=== PATIENT | male | born 1950 | race Caucasian/White ===

== ENCOUNTER 2018-12-18 05:42 | Inpatient (IN) ==
--- NOTE | 2018-11-27 15:13 | PAT Medication Instructions ---
Medication Instructions Date of Service November 27, 2018 Home Medications aspirin [Aspir-81] 81 mg PO QAM fluticasone [Flonase Allergy 1 spray INTRANASAL HS PRN hydrochlorothiazide 25 mg PO QAM losartan 25 mg PO HS ranitidine HCl [Zantac] 150 mg PO QAM tramadol 50 mg PO Q6H PRN ASK your prescriber and surgeon aspirin [Aspir-81] 81 mg PO QAM DO NOT take the morning of surgery hydrochlorothiazide 25 mg PO QAM ranitidine HCl [Zantac] 150 mg PO QAM Take morning of surgery With a small sip of water, OTHERWISE NOTHING TO EAT OR DRINK AFTER MIDNIGHT: tramadol 50 mg PO Q6H PRN (okay to take up to 4 hours prior to surgery if needed) Take evening before surgery fluticasone [Flonase Allergy 1 spray INTRANASAL HS PRN (if needed) losartan 25 mg PO HS tramadol 50 mg PO Q6H PRN (if needed) Other Notes If you have any questions please call us at [phone] or [phone] or [phone] or [phone]
--- NOTE | 2018-11-28 13:01 | Anesthesiology Consultation ---
Date of Service November 28, 2018 Assessment & Plan (1) Encounter for pre-operative examination: - Per patient, surgeon states okay to continue ASA perioperatively Chart Review Chart Review: Acceptable Risk for Surgery and Patient seen in Pre Admission Testing Teaching & Discussion Pre-Anesthesia Teaching/Discussion Notes: Instructed NPO after midnight before surgery,except medications with 15 cc of water. Medication instructions provided according to the PAT guidelines. History Surgery Operation Date: 12/18/18 12:55 Proposed Procedures p C5-C6; C6-C7 Anterior Cervical Discectomy Fusion - Yong Dyer DO Height/Weight Height: 5 ft 10 in Weight: 88 kg Allergies Allergy/AdvReac Type Severity Reaction Status Date / Time Bactrim Allergy Unknown RASH Verified 03/31/15 10:57 Cipro Allergy Unknown HIVES Verified 03/31/15 10:57 ciprofloxacin Allergy Unknown HIVES Verified 11/21/18 13:27 metronidazole Allergy Unknown RASH Verified 11/21/18 13:27 sulfamethoxazole Allergy Unknown RASH Verified 11/21/18 13:27 trimethoprim Allergy Unknown RASH Verified 11/21/18 13:27 Penicillins AdvReac Unknown SYNCOPE Verified 11/28/18 12:58 Medications Home Medications Medication Instructions Recorded Confirmed Last Taken aspirin [Aspir-81] 81 mg PO QAM 11/21/18 11/21/18 Unknown fluticasone [Flonase Allergy 1 spray INTRANASAL HS PRN 11/21/18 11/21/18 Unknown Relief] hydrochlorothiazide 25 mg PO QAM 11/21/18 11/21/18 Unknown losartan 25 mg PO HS 11/21/18 11/21/18 Unknown ranitidine HCl [Zantac] 150 mg PO QAM 11/21/18 11/21/18 Unknown tramadol 50 mg PO Q6H PRN 11/21/18 11/21/18 Unknown Past Medical History Medical History GERD (gastroesophageal reflux disease) CONTROLLED Hypertension Past Surgical History Surgical History Fusion of spine LUMBAR H/O exploratory laparotomy MULTIPLE S/P RUPTURED APPENDIX H/O hand surgery RIGHT H/O hemorrhoidectomy History of appendectomy History of cholecystectomy History of total knee replacement RIGHT Past Anesthesia History No Hx of Anesthesia Complications and No Family Hx of Anesthesia Complications History of PONV No Motion Sickness Screening History of Motion Sickness: No STOP BANG Total 3 Social History Smoking Status: Former smoker Do You Dip or Chew Tobacco: No Smoking End Date: QUIT 40+ YEARS AGO; SHORT TERM USE IN "TEENS" Hx Alcohol Use: No Hx Substance Use: No substance use type: does not use Exercise / Class Metabolic Activity II 4-5 Yardwork/Stairs/Walk up hill Review of Systems Cervicalgia with LUE radiculopathy/neuropathy. Patient denies chest pain, shortness of breath, dyspnea on exertion, cough, wheezing, palpitations. Physical Exam Vital Signs VITALS BP 160/88 P 72 TEMP 98.0 SP02 96%RA RESP 18 PHYSICAL Very mildly decreased cervical extension 2/2 cervicalgia Full TMJ range of motion. TMD 3.5 finger breaths Mallampati Score 2 Dentition: full dentures upper/lower; edentulous Lungs: clear throughout to auscultation Cardiac: regular rate and rhythm, no murmurs noted Spine: normal Carotid arteries: negative bruit Extremities: no edema Testing Electrocardiogram Date: 11/28/18 Findings: + NSR @ (73) Chest X-Ray Date: 11/28/18 Findings: + NAD There is a persistent area of linear scarring/subsegmental atelectasis at the left lung base. Laboratory Results 11/28/18 13:27 11/28/18 13:27 Blood Type O Positive 11/28/18 13:27 Antibody Screen NEGATIVE 11/28/18 13:27 PT 10.7 Seconds (9.0-12.0) 11/28/18 13:27 INR 1.0 (0.9-1.1) 11/28/18 13:27 APTT 27.3 Seconds (21.0-31.0) 11/28/18 13:27 Urine Color Yellow 11/28/18 Unknown Urine Appearance Clear (Clear) 11/28/18 Unknown Urine pH 6.0 (4.5-7.5) 11/28/18 Unknown Ur Specific [place] 1.020 (1.000-1.030) 11/28/18 Unknown Urine Protein Negative (Negative) 11/28/18 Unknown Urine Glucose (UA) Negative (Negative) 11/28/18 Unknown Urine Ketones Negative (Negative) 11/28/18 Unknown Urine Nitrite Negative (Negative) 11/28/18 Unknown Ur Leukocyte Esterase Negative (Negative) 11/28/18 Unknown
[2018-11-28 13:42] LABS: Basophils # (auto) 0.04 K/uL (0-0.2); Basophils % (auto) 0.6 %; Eosinophils # (auto) 0.23 K/uL (0-0.5); Eosinophils % (auto) 3.3 %; Hematocrit (blood only) 49.9 % (42-52); Hemoglobin 17.4 g/dL (14.0-18.0); Immature Granulocytes # (auto) 0.01 K/uL (0.00-0.02); Immature Granulocytes % (auto) 0.1 %; Lymphocytes # (auto) 1.94 K/uL (1.2-3.4); Lymphocytes % (auto) 28.1 %; Mean Corpuscular Hgb Conc 34.9 g/dL (32-36); Mean Corpuscular Volume 90.2 fL (80-100); Mean Platelet Volume 10.2 fL (7.4-10.4); Monocytes # (auto) 0.84 K/uL (0.11-0.59); Monocytes % (auto) 12.2 %; Neutrophils # (auto) 3.84 K/uL (1.4-6.5); Neutrophils % (auto) 55.7 %; Platelet Count 225 K/uL (130-400); RDW Coefficient of Variation 13.3 % (11.5-14.5); RDW Standard Deviation 43.4 fL (36.4-46.3); Red Blood Count 5.53 M/uL (4.7-6.1)
[2018-11-28 13:48] LABS: Appearance Urine Clear (Clear); Bilirubin Urine Negative (Negative); Blood Urine Negative (Negative); Color Urine Yellow; Glucose Urine UA Negative (Negative); Ketones Urine Negative (Negative); Leukocyte Esterase Urine Negative (Negative); Nitrite Urine Negative (Negative); Protein Urine Negative (Negative); Urobilinogen Urine Negative (Negative)
[2018-11-28 13:52] LABS: Partial Thromboplastin Time 27.3 Seconds (21.0-31.0); Prothrombin Time 10.7 Seconds (9.0-12.0)
--- NOTE | 2018-11-28 13:53 | XRay Report ---
XR chest Pre-admission PA/Lat CLINICAL HISTORY: Preoperative chest COMPARISON STUDY: March 31, 2015 FINDINGS: The cardiac and mediastinal contours are normal. There is no evidence of focal pulmonary co nsolidation. There is no evidence of failure. No pleural effusions are visualized.[ There is a persis tent area of linear scarring/subsegmental atelectasis at the left lung base. IMPRESSION: No active disease in the chest. Electronically signed by: Fernando Benz M.D. 11/28/2018 1:51 PM
[2018-11-28 14:55] LABS: BUN Creatinine Ratio 14.9 (10-20); Calcium 8.9 mg/dl (8.5-10.1); Creatinine Clr Calc Pharmacy 62.3 ml/min; Est GFR (African American) 67.7; Est GFR (Non-African American) 58.4; Potassium 3.5 mmol/L (3.5-5.1)
[2018-12-18] MEDS ORDERED: ACETAMINOPHEN 500 MG TAB PO SCH (06:00)
[2018-12-18] MEDS ORDERED: CLINDAMYCIN 600 MG/54 ML BAG IV SCH (06:00)
[2018-12-18] MEDS ORDERED: LR 15ML/HR IV SCH (06:00)
[2018-12-18] MEDS ORDERED: GABAPENTIN 300 MG PO SCH (06:00)
[2018-12-18] MEDS ORDERED: ONDANSETRON INJ 2 MG/ML 2 ML VIAL IV PRN ×2 (06:37→10:45)
[2018-12-18] MEDS ORDERED: fentaNYL citrate 100 MCG/2 ML VIAL IV PRN (06:37)
[2018-12-18] MEDS ORDERED: ePHEDrine sulfate 50 MG/ML AMP IV PRN (06:37)
[2018-12-18] MEDS ORDERED: HYDROmorphone INJ 1 MG/ML SYRINGE IV PRN (06:37)
[2018-12-18] MEDS ORDERED: PHENYLEPHRINE 100MCG/ML 5ML SYR IV PRN (06:37)
[2018-12-18] MEDS ORDERED: ATROPINE SULFATE 0.1 MG/ML 10ML SYR IV PRN (06:37)
[2018-12-18] MEDS ORDERED: fentaNYL citrate 100 MCG/2 ML VIAL ONE ×3 (06:42→08:12)
[2018-12-18] MEDS ORDERED: MIDAZOLAM HCL 1 MG/ML 2ML VIAL ONE (06:42)
[2018-12-18] MEDS ORDERED: HYDROmorphone INJ 2 MG/ML SYR/VIAL ONE ×2 (06:43)
[2018-12-18] MEDS ORDERED: ROCURONIUM BROMIDE 10 MG/ML 5 ML VIAL ONE (06:44)
[2018-12-18] MEDS ORDERED: LIDOCAINE HCL 2% 2 ML VIAL/AMP(20MG/ML) INFIL ONE (06:44)
[2018-12-18] MEDS ORDERED: GLYCOPYRROLATE 0.2 MG/ML VIAL ONE ×2 (06:44→08:26)
[2018-12-18] MEDS ORDERED: NEOSTIGMINE METHYLSULFATE 5 MG/5 ML SYR ONE (06:44)
[2018-12-18] MEDS ORDERED: ONDANSETRON INJ 2 MG/ML 2 ML VIAL ONE (06:44)
[2018-12-18] MEDS ORDERED: PROPOFOL IV EMULSION 10 MG/ML 20 ML VIAL IV ONE (06:44)
[2018-12-18] MEDS ORDERED: DEXAMETHASONE SOD INJ 4 MG/ML VIAL ONE (06:44)
[2018-12-18] MEDS ORDERED: BACITRACIN INJ 50,000 UNIT VIAL ONE (06:53)
--- NOTE | 2018-12-18 07:29 | History & Physical Bridge Note ---
Date of Service December 18, 2018 History & Physical Bridge Note I have examined the patient, reviewed the History & Physical and in the interval since the performance of the History & Physical I have noted the following changes of clinical significance: no changes noted
--- NOTE | 2018-12-18 07:30 | History & Physical Report ---
Date of Service December 18, 2018 Assessment & Plan (1) Cervical stenosis of spinal canal: Anterior cervical discectomy and fusion C5-6 C6-7 Present on Admission?: Yes History of Present Illness Chief Complaint: Neck and arm pain Primary Care Provider: Mary Boykin PA-C This is a 68-year-old male who presents arm pain. After failing extensive course of nonoperative care is here for surgical intervention. Allergies Allergy/AdvReac Type Severity Reaction Status Date / Time Bactrim Allergy Unknown RASH Verified 03/31/15 10:57 Cipro Allergy Unknown HIVES Verified 03/31/15 10:57 ciprofloxacin Allergy Unknown HIVES Verified 12/18/18 06:04 metronidazole Allergy Unknown RASH Verified 12/18/18 06:04 sulfamethoxazole Allergy Unknown RASH Verified 12/18/18 06:04 trimethoprim Allergy Unknown RASH Verified 12/18/18 06:04 Penicillins AdvReac Unknown SYNCOPE Verified 12/18/18 06:04 Home Medications Home Medications Medication Instructions Recorded Confirmed Type aspirin [Aspir-81] 81 mg PO QAM 11/21/18 12/18/18 History fluticasone propionate [Flonase 1 spray INTRANASAL HS PRN 11/21/18 12/18/18 History Allergy Relief] hydrochlorothiazide 25 mg PO QAM 11/21/18 12/18/18 History losartan 25 mg PO HS 11/21/18 12/18/18 History ranitidine HCl [Zantac] 150 mg PO QAM 11/21/18 12/18/18 History tramadol 50 mg PO Q6H PRN 11/21/18 12/18/18 History Past Med/Surg History Medical History GERD (gastroesophageal reflux disease) CONTROLLED Hypertension Surgical History Fusion of spine LUMBAR H/O exploratory laparotomy MULTIPLE S/P RUPTURED APPENDIX H/O hand surgery RIGHT H/O hemorrhoidectomy History of appendectomy History of cholecystectomy History of total knee replacement RIGHT Social History Preferred Language: [place] Communication Ability: Effective Risk And Compliance Analytics Director Required: No Beliefs That Will Affect Care: None Current Living Situation: Spouse Other Information That Helps Us Care for You: No Feels Safe at Home: Yes Safety Concerns: Feels Safe At This Time Smoking Status: Former smoker Hx Alcohol Use: No Hx Substance Use: No Physical Exam Vital Signs (Past 24 Hours): Last Vital Signs Temp 36.7 C 12/18/18 06:09 Pulse 68 12/18/18 06:09 Resp 16 12/18/18 06:09 BP 162/100 H 12/18/18 06:09 Pulse Ox 97 12/18/18 06:09 Results & Data Medications Administered Acetaminophen (Tylenol) 1,000 mg PO PREOP RILEY Stop: 12/18/18 18:00 Last Admin: 12/18/18 06:25 Dose: 1,000 mg Documented by: [id number] Gabapentin (Neurontin) 300 mg PO PREOP RILEY Stop: 12/18/18 18:00 Last Admin: 12/18/18 06:24 Dose: 300 mg Documented by: [id number] Lactated Ringer's (Lr) 1,000 mls @ 15 mls/hr IV .Q24H RILEY Stop: 12/19/18 05:59 Last Admin: 12/18/18 06:20 Dose: 15 mls/hr Documented by: [id number]
[2018-12-18] MEDS ORDERED: ePHEDrine sulfate 50 MG/ML SYR ONE (08:26)
[2018-12-18] MEDS ORDERED: PHENYLEPHRINE 100MCG/ML 5ML SYR ONE (08:26)
[2018-12-18] MEDS ORDERED: FLOSEAL HEMOSTATIC MATRIX 10ML TOP ONE (08:42)
[2018-12-18] MEDS ORDERED: ESMOLOL HCL INJ 10 MG/ML 10ML VIAL IV ONE (08:56)
--- NOTE | 2018-12-18 09:01 | Operative Report ---
Post Operative Report Pre & Post Diagnosis Operation Date: 12/18/18 07:45 Pre-Op Diagnosis: Cervical spinal stenosis with radiculopathy Post-Op Diagnosis: Same Procedure Operation Date: 12/18/18 07:45 Actual Procedures #1 anterior cervical discectomy bilateral foraminotomies C5-6 C6-7. #2 anterior cervical arthrodesis C5-6 C6-7. #3 placement of cortical allograft filled with DBM 8 mm in height at C5-6 C6-7. 4 application ying plate and screws across C5-6 C6-7. Surgeon Yong Dyer, Director Drug Safety Vanesa Gama Estimated Blood Loss 10 Findings Consistent with Post-Op Diagnosis Specimens None Description of Procedure Patient was met with preoperatively case discussed all questions addressed. After informed consent obtained patient was taken to the operative suite underwent intubation placed in a supine position Uri table the head Mohan head of advertising. All bony prominences well-padded eyes inspected to ensure no external pressure placed upon the. This point the anterior cervical spine was prepped and draped in normal sterile fashion. The assistance of fluoroscopy identified the C6 vertebral body and a transverse incision was placed along the right anterior aspect of the cervical spine aligns region. Sharp dissection with the assistance of bipolar elective cautery was performed down to and exposing the anterior cervical spine from C5-C7. Self-retaining retractors placed. I verified my position with fluoroscopy. Then performed a complete discectomy of C5-6 up to the uncovertebral joints bilaterally. [place] distracting pins utilized to assist in visualization. I removed all posterior annular fibers performed bilateral foraminotomies endplates burred to subcortical mean bone and an 8 mm cortical allograft filled with DBM tamped in position. Then proceeded to see 6 7. Again complete discectomy performed up to the uncovertebral joints bilaterally. Removed all posterior annular fibers and longitudinal ligament bilateral foraminotomies performed. Again [place] distracting pins utilized to assist in visualization and distraction. In place burred to subcortical B bone and an 8 mm cortical allograft filled with DBM tamped in position. The distraction apparatus was removed and all anterior ossified produce smooth cortical surface. Ying plate and screws applied with the assistance of fluoroscopy. A 10 round CALI drain inserted. Incision was then closed with 2 Vicryl in a fashion of 4 Monocryl for final skin closure. Steri- Strip sterile dressings placed. Patient will continue to PACU stable disc. Please note Vanesa Gama present throughout the entire procedure involved in patient positioning complex portions of the surgery and final I attest to the content of the Intraoperative Record and any orders documented therein. Any exceptions are noted below.
--- NOTE | 2018-12-18 09:34 | Fluoroscopy Report ---
Cervical SPINE, INTRAOPERATIVE FLUOROSCOPY HISTORY: C5 C7 ACDF. FLUOROSCOPY TIME: 12 seconds. FINDINGS: Intraoperative fluoroscopy was provided for the cervical spine. 4 fluoroscopic spot images were obtained. Anterior cervical discectomy and fusion from C5 through C7. The hardware appears intac t. IMPRESSION: Fluoroscopy provided for a C5-C7 ACDF. Electronically signed by: Hugh Sales M.D. 12/18/2018 9:33 AM
--- NOTE | 2018-12-18 10:01 | Anesthesiology Progress Note ---
Date of Service December 18, 2018 Anesthesia Post Procedure Vital Signs Vital Signs: Temp Pulse Pulse Resp BP BP Pulse Ox 12/18/18 09:45 78 19 99 12/18/18 09:41 76 15 125/77 97 12/18/18 09:40 75 13 98 12/18/18 09:36 72 15 129/83 97 12/18/18 09:35 74 12 100 12/18/18 09:31 74 13 133/77 99 12/18/18 09:30 75 10 L 99 12/18/18 09:26 75 12 134/79 99 12/18/18 09:25 74 19 99 12/18/18 09:21 75 15 131/83 99 12/18/18 09:20 77 17 99 12/18/18 09:15 36.1 C L 74 80 17 138/83 133/77 97 12/18/18 06:09 36.7 C 68 16 162/100 H 97 Pain Intensity Bilateral Neck: Pain Intensity: 5 Notes Mental Status: alert / awake / arousable Patient Amnestic to Procedure: Yes Nausea / Vomiting: adequately controlled Pain: adequately controlled Airway Patency, RR, SpO2: stable & adequate BP & HR: stable & adequate Hydration State: stable & adequate Anesthetic Complications: no major complications apparent
[2018-12-18] MEDS ORDERED: NALOXONE HCL 0.4 MG/1 ML VIAL/CARP IV PRN (10:45)
[2018-12-18] MEDS ORDERED: DO NOT ADMINISTER PNEUMOCOCCAL VACCINE PRN (10:45)
[2018-12-18] MEDS ORDERED: HYDROmorphone INJ 0.5 MG/0.5 ML SYR IV PRN (10:45)
[2018-12-18] MEDS ORDERED: SODIUM CHLORIDE 0.9% 1000ML 1,000 ML IV SCH (10:45)
[2018-12-18] MEDS ORDERED: OXYCODONE/ACETAMINOPHEN 5mg/325mg TAB PO PRN ×2 (10:45→11:16)
[2018-12-18] MEDS ORDERED: OXYCODONE HCL IR 5 MG TAB (IMMEDIATE RELEASE) PO PRN (10:45)
[2018-12-18] MEDS ORDERED: LORazepam 0.5 MG TAB PO PRN (10:45)
[2018-12-18] MEDS ORDERED: LORazepam 0.5 MG/1 ML VIAL IV PRN (10:45)
[2018-12-18] MEDS ORDERED: DO NOT ADMINISTER FLU VACCINE PRN (10:45)
[2018-12-18] MEDS ORDERED: RACEPINEPHRINE 2.25% NEBU SOLN 0.5 ML VIAL INH PRN (10:45)
[2018-12-18] MEDS ORDERED: MAGNESIUM HYDROXIDE SUSP 30 ML UDC PO PRN (10:45)
[2018-12-18] MEDS ORDERED: DiphenhydrAMINE HCL 50 MG/ML VIAL IV PRN (10:45)
[2018-12-18] MEDS ORDERED: DEXAMETHASONE SOD PHOSPHATE 8 MG in SYRINGE 0 ML IV PRN (10:45)
[2018-12-18] MEDS ORDERED: FLUTICASONE PROPIONATE NA SPR 16 GM BTL PRN (10:45)
[2018-12-18] MEDS ORDERED: METOCLOPRAMIDE HCL INJ 5 MG/ML 2 ML VIAL ONE (11:43)
[2018-12-18] MEDS ORDERED: raNITIdine HCl 25 MG/ML VIAL ONE (11:43)
[2018-12-18] MEDS: TRAMADOL HCL 50 MG TABLET PO PRN ×2 (12:52→18:50)
[2018-12-18] MEDS: CLINDAMYCIN 600 MG in DEXTROSE 5% 50 ML IV SCH (15:42)
[2018-12-18] MEDS: DOCUSATE SODIUM 100 MG CAP PO SCH (20:03)
[2018-12-18] MEDS ORDERED: LOSARTAN POTASSIUM 25 MG TAB PO SCH (21:00)
[2018-12-19] MEDS: CLINDAMYCIN 600 MG in DEXTROSE 5% 50 ML IV SCH ×2 (00:06→07:39)
[2018-12-19] MEDS: TRAMADOL HCL 50 MG TABLET PO PRN (00:46)
--- NOTE | 2018-12-19 07:44 | Anesthesiology Progress Note ---
Date of Service December 19, 2018 Anesthesia Post Procedure Vital Signs Vital Signs: Temp Pulse Pulse Resp BP BP BP 12/19/18 06:58 66 16 12/19/18 05:39 36.4 C L 74 16 119/71 12/19/18 03:52 72 18 12/19/18 03:36 36.4 C L 77 16 126/77 12/19/18 01:40 36.5 C 67 16 118/70 12/18/18 23:35 36.5 C 66 16 135/63 12/18/18 23:09 73 14 12/18/18 23:01 36.4 C L 66 14 146/73 H 12/18/18 21:30 36.5 C 61 14 114/71 12/18/18 19:40 36.7 C 97 H 14 120/70 12/18/18 19:14 78 16 12/18/18 17:35 36.6 C 73 12 118/76 12/18/18 15:55 62 22 12/18/18 15:39 36.6 C 71 17 114/70 12/18/18 13:35 36.5 C 62 16 107/66 12/18/18 12:35 36.4 C L 61 16 107/61 12/18/18 11:35 36.5 C 66 18 109/68 12/18/18 11:28 62 18 12/18/18 11:05 36.4 C L 73 16 117/71 12/18/18 10:35 36.4 C L 69 16 114/71 12/18/18 10:20 72 15 122/80 12/18/18 10:16 66 19 117/74 12/18/18 10:15 69 18 12/18/18 10:11 67 11 L 122/70 12/18/18 10:10 64 12 12/18/18 10:06 66 8 L 112/71 12/18/18 10:05 69 12 12/18/18 10:01 74 15 125/80 12/18/18 10:00 36.4 C L 67 68 17 125/80 12/18/18 09:56 67 20 122/73 12/18/18 09:55 72 21 12/18/18 09:51 65 15 123/75 12/18/18 09:50 71 23 12/18/18 09:46 72 18 133/79 12/18/18 09:45 78 19 12/18/18 09:41 76 15 125/77 12/18/18 09:40 75 13 12/18/18 09:36 72 15 129/83 12/18/18 09:35 74 12 12/18/18 09:31 74 13 133/77 12/18/18 09:30 75 10 L 12/18/18 09:26 75 12 134/79 12/18/18 09:25 74 19 12/18/18 09:21 75 15 131/83 12/18/18 09:20 77 17 12/18/18 09:15 36.1 C L 74 80 17 138/83 133/77 Pulse Ox Pulse Ox 12/19/18 06:58 93 12/19/18 05:39 95 12/19/18 03:52 95 12/19/18 03:36 95 12/19/18 01:40 95 12/18/18 23:35 97 12/18/18 23:09 98 12/18/18 23:01 98 12/18/18 21:30 98 12/18/18 19:40 97 12/18/18 19:14 97 12/18/18 17:35 96 12/18/18 15:55 94 12/18/18 15:39 94 94 12/18/18 13:35 96 12/18/18 12:35 95 12/18/18 11:35 95 12/18/18 11:28 94 12/18/18 11:05 96 12/18/18 10:35 96 12/18/18 10:20 96 12/18/18 10:16 96 12/18/18 10:15 97 12/18/18 10:11 97 12/18/18 10:10 97 12/18/18 10:06 98 12/18/18 10:05 99 12/18/18 10:01 98 12/18/18 10:00 98 12/18/18 09:56 98 12/18/18 09:55 97 12/18/18 09:51 98 12/18/18 09:50 99 12/18/18 09:46 99 12/18/18 09:45 99 12/18/18 09:41 97 12/18/18 09:40 98 12/18/18 09:36 97 12/18/18 09:35 100 0320/19 09:31 99 12/18/18 09:30 99 12/18/18 09:26 99 12/18/18 09:25 99 12/18/18 09:21 99 12/18/18 09:20 99 12/18/18 09:15 97 Pain Intensity Bilateral Neck: Pain Intensity: 4 Notes Mental Status: alert / awake / arousable and participated in evaluation Nausea / Vomiting: adequately controlled Pain: adequately controlled Airway Patency, RR, SpO2: stable & adequate BP & HR: stable & adequate Hydration State: stable & adequate Anesthetic Complications: Pt Satisfied with anesthetic care
--- NOTE | 2018-12-19 08:02 | Discharge Summary ---
Date of Service December 19, 2018 Admission HPI Per Admitting Provider This is a 68-year-old male who presents arm pain. After failing extensive course of nonoperative care is here for surgical intervention. Principal Diagnosis Cervical spinal stenosis with radiculopathy Discharge Data Allergies Allergy/AdvReac Type Severity Reaction Status Date / Time Bactrim Allergy Unknown RASH Verified 03/31/15 10:57 Cipro Allergy Unknown HIVES Verified 03/31/15 10:57 ciprofloxacin Allergy Unknown HIVES Verified 12/18/18 06:04 metronidazole Allergy Unknown RASH Verified 12/18/18 06:04 sulfamethoxazole Allergy Unknown RASH Verified 12/18/18 06:04 trimethoprim Allergy Unknown RASH Verified 12/18/18 06:04 Penicillins AdvReac Unknown SYNCOPE Verified 12/18/18 06:04 Procedures Performed Operation Date: 12/18/18 07:45 Actual Procedures p C5-C6; C6-C7 Anterior Cervical Discectomy and Fusion(Not Applicable) - Yong Dyer DO Ordered Studies 12/18/18 07:45 FL cervical 2-3V Routine FL fluoroscopy <1hr Routine Hospital Course (1) Cervical stenosis of spinal canal: Patient underwent anterior cervical discectomy and fusion tolerated as well as taken to the orthopedic floor postoperative. Postop day 1 his arm symptoms are markedly improved. Had no swallowing deficits. No hoarseness. CALI drain decreasing appropriately. Subsequently discharged home. Discharge orders and instructions found in the chart for further review. Total Time Total Time Spent Total Time Spent (In Minutes): None Discharge Plan Discharge Items Patient Disposition: Home - Self-Care Reason For Visit: Spinal Stenosis, Cervical Region Discharge Diagnosis: Cervical spinal stenosis with radiculopathy Discharge Goals: Decrease discomfort Activity: Per 'Additional Instructions' section Non-emergency contact: Primary Care Provider Call non-emergency contact if: you have any medication questions Follow-up/Referrals: Mary Boykin PA-C [Primary Care Provider] - Diet: Regular Addtl Provider Instructions: ACTIVITY RECOMMENDATIONS: SELF CARE INSTRUCTIONS AFTER CERVICAL FUSIONS 1. No smoking. Smoking drastically decreases the chance of a solid fusion. 2. No bending, lifting more than 5 pounds, or twisting (roll like a log when turning in bed). 3. You may shower 3 days after surgery. Thoroughly dry wound. Do not soak in the tub. 4. Cervical collar: Must be worn at all times including sleeping. You may remove the brace only to bath, eat and if you are sitting in a recliner. 5. Please walk as much as you can for exercise. Gradually increase the distance that you walk as your endurance increases. SPECIAL CARE INSTRUCTIONS: VERY IMPORTANT TO READ AND REVIEW A. Do not take any anti-inflammatory medications (i.e. Indocin, Advil, Aspirin, Naprosyn, Aleve, Motrin, etc.) as these may inhibit the chance of a solid fusion. Tylenol is okay to take. B. Your surgical incision has been closed with a cosmetic suture under the skin that will dissolve in about 6 weeks. In 14 days, you can use a pair of clean scissors and cut the suture that is left outside of the skin at the ends of your incision. C. Complications are uncommon, but please contact us if you have any signs or symptoms of: 1. wound infection (fever higher than 102.5 degrees F, redness, separation of wound, drainage, or increasing pain from the incision) 2. blood clots in legs (pain, swelling, redness and warmth in legs) 3. urinary tract infection (fever higher than 102.5 degrees, burning upon urination or increased frequency of urination) 4. nerve problems (inability to walk on your toes or heels, numbness, loss of bowel or bladder control) 5. any other symptoms that concern you. D. Please call the office at if you have any concerns or questions about your operation or recovery. MANAGING PAIN AFTER SPINAL SURGERY 1. Narcotic medication is intended for short-term use and will be provided for surgical pain. Surgical pain usually lasts for a period of 4-6 weeks. Narcotic medication includes Percocet, Vicodin, Darvocet, Tylenol #3 or Lortab. 2. Longer-term pain is more appropriately treated with non-narcotic medication such as Tylenol ES. 3. Muscle spasm is not appropriately treated with narcotics. Muscle relaxers such as Soma, Flexeril or Skelaxin can be used along with Tylenol ES. 4. Remember that we all live with some "aches and pains". This is not unusual or uncommon after an injury or as we get older. 5. We will provide appropriate medication within the normal guidelines of their prescribed use. We will also be very cautious and aware of potential abuse and extended duration of patients' medication needs. 6. Please allow 2-3 days to process refills. Prescriptions will not be mailed but must be picked up at the office. FOLLOW UP VISIT: Keep your scheduled follow-up appointment. Any questions, please call the office at . Prescriptions: New tramadol 50 mg Tablet 50 mg PO Q6H PRN (Reason: Pain, Moderate) Qty: 20 RF: 0 oxycodone-acetaminophen [Percocet] 5-325 mg Tablet 1 tab PO Q4H PRN (Reason: Pain, Severe) Qty: 10 RF: 0 Continued aspirin [Aspir-81] 81 mg Tablet,Delayed Release (Dr/Ec) 81 mg PO QAM RF: 0 tramadol 50 mg Tablet 50 mg PO Q6H PRN (Reason: Pain) RF: 0 losartan 25 mg Tablet 25 mg PO HS RF: 0 hydrochlorothiazide 25 mg Tablet 25 mg PO QAM RF: 0 ranitidine HCl [Zantac] 150 mg Tablet 150 mg PO QAM RF: 0 fluticasone propionate [Flonase Allergy Relief] 50 mcg/actuation [place],Suspension 1 spray INTRANASAL HS PRN (Reason: Congestion) RF: 0 Stand-Alone Forms: [facility] Discharge Orders: Discharge Order (Routine); Ordered 12/19/18 Ordered By: Yong Dyer Admission Data Admit Date/Time: 12/18/18 09:05 Attending Provider: Yong Dyer Admit Provider: Yong Dyer Primary Care Provider: Mary Boykin Service: Surgical Services
[2018-12-19] MEDS: DOCUSATE SODIUM 100 MG CAP PO SCH (08:18)
[2018-12-19] MEDS ORDERED: hydroCHLOROthiazide 25 MG TAB PO SCH (09:00)
[2018-12-20] MEDS ORDERED: BISACODYL 5 MG TABEC PO PRN (09:04)
== END 2018-12-19 10:39 | disposition home or self-care (01) | DRG 473 ==
LOC: ASU 05:42 → 3E 09:05

== ENCOUNTER 2024-12-02 07:02 | Inpatient (IN) ==
--- NOTE | 2024-10-30 13:08 | PAT Medication Instructions ---
Medication Instructions Date of Service October 30, 2024 Home Medications Medication Instructions Recorded oxycodone-acetaminophen 5 mg-325 1 tab PO Q4H PRN Pain, Severe #10 12/18/ mg tablet (Percocet) tabs tramadol 50 mg tablet 50 mg PO Q6H PRN Pain, Moderate 12/18/18 #20 tabs aspirin 81 mg tablet,delayed release (Aspir-) 81 mg PO QAM fluticasone propionate 50 mcg/actuation nasal spray,suspension (Flonase Allergy Relief) 1 spray intranasal HS PRN Congestion hydrochlorothiazide 25 mg tablet 25 mg PO QAM losartan 25 mg tablet 100 mg PO QAM oxycodone-acetaminophen 5 mg-325 mg tablet (Percocet) 1 tab PO Q4H PRN Pain, Severe tramadol 50 mg tablet 50 mg PO Q6H PRN Pain, Moderate citalopram 10 mg tablet 10 mg PO HS diclofenac sodium 75 mg tablet,delayed release 75 mg PO BID omeprazole 20 mg tablet,delayed release 20 mg PO QAM ASK your surgeon for instructions diclofenac sodium 75 mg tablet,delayed release 75 mg PO BID ASK your prescriber and surgeon aspirin 81 mg tablet,delayed release (Aspir-) 81 mg PO QAM DO NOT take the morning of surgery hydrochlorothiazide 25 mg tablet 25 mg PO QAM losartan 25 mg tablet 100 mg PO QAM Take morning of surgery With a small sip of water, OTHERWISE NOTHING TO EAT OR DRINK AFTER MIDNIGHT: oxycodone-acetaminophen 5 mg-325 mg tablet (Percocet) 1 tab PO Q4H PRN Pain, Severe (if needed) tramadol 50 mg tablet 50 mg PO Q6H PRN Pain, Moderate (if needed) omeprazole 20 mg tablet,delayed release 20 mg PO QAM Take evening before surgery fluticasone propionate 50 mcg/actuation nasal spray,suspension (Flonase Allergy Relief) 1 spray intranasal HS PRN Congestion (if needed) oxycodone-acetaminophen 5 mg-325 mg tablet (Percocet) 1 tab PO Q4H PRN Pain, Severe (if needed) tramadol 50 mg tablet 50 mg PO Q6H PRN Pain, Moderate (if needed) citalopram 10 mg tablet 10 mg PO HS Other Notes If you have any questions please call us at [phone] or [phone] or [phone] or [phone]
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
[2024-12-02] MEDS: CeleBREX 200 MG CAP PO SCH (07:30)
[2024-12-02] MEDS: GABAPENTIN 300 MG CAP PO SCH (07:30)
[2024-12-02] MEDS: LR 60ML/HR IV SCH (07:30)
[2024-12-02] MEDS: VANCOMYCIN HCL 1,250 MG in SODIUM CHLORIDE 0.9% 250 ML IV SCH (07:30)
[2024-12-02] MEDS: ACETAMINOPHEN 500 MG TAB PO SCH (07:30)
[2024-12-02] MEDS: LR 15ML/HR IV SCH (07:31)
--- OUTSIDE RECORDS SUMMARY | 2024-12-02 07:51 | External Medical Summary | Summary of Care ---
Author Name Unknown Organization [facility] Address [address] [facility] [place] [address] Phone [phone] Care Team Providers Care Inside Sales Assistant Name Role Phone Karin Wilder MD Primary Care Provider [phone] Reason for Visit * Reason Comments Pre-op Clearance Preoperative Clearan ce for Lumbar Decompression Infusion with Dr Dyer. Patient is scheduled for Cardiac Clearance scheduled 11/25/2024. Patient had EKG and Labs done through [facility] 11/06/2024. Cold Symptoms Head congestion, run ny nose, bloody drainage; symptoms for several months; Patient evaluated twice for same symptoms. Patient was treated with Doxycycline, Ceftin and Prednisone X 2 without relief. Encounter Details Date Type Department Care Team (Late st Contact Info) Description 11/14/2024 4:00 PM EST Office Visit [facility], [place] [address] [place] [address] Dale Swann MD [address] [place] [address] Pre-op evaluation*; Sinus congestion Allergies Active Allergy Reactions Criticality Noted Date Comments Adhesive Tape 10/04/2022 Bactrim Anaphylaxis,Rash High 04/01/2013 Bullseye rash Ciprofloxacin Hives 04/01/2013 After IV cipro @ Metronidazole Anaphylaxis,Rash High 04/01/2013 Penicillins 11/24/1998 Sulfamethoxazole 10/04/2022 Trimethoprim 10/04/2022 documented as of this encounter (statuses as of 11/28/2024) Medications ASPIRIN EC 81 MG PO TBECIndications:H TN, goal below 140/90 Take one pill daily 100 Tab 3 011 Active acetaminophen (TYLENOL) 500 MG TabletIndications :Generalized osteoarthritis Take 2 Tabs by mouth every 6 hours as needed for Pain. 100 Tab 016 Active Albuterol Sulfate HFA 108 (90 Base) MCG/ACT Inhalation Aerosol Solution Inhale 2 Puffs by mouth every 4 hours as needed for Shortness of Breath. 6.7 g 1 021 Active Vitamin D 25 MCG (1000 UT) Oral TabletIndications :Vitamin D deficiency Take by mouth 1 Tablet in the morning. 30 Tablet 5 022 Active amLODIPine Besylate 10 MG Oral Tablet (Norvasc)Indicati ons:HTN, goal below 140/90 Take 1 Tablet by mouth in the morning. 90 Tablet 3 024 Active hydroCHLOROthiazi de 25 MG Oral Tablet (Hydrodiuril) Take 1 Tablet by mouth in the morning. 90 Tablet 1 024 Active Finasteride 5 MG Oral Tablet (Proscar) Take 1 Tablet by mouth in the morning. 90 Tablet 3 024 Active Clobetasol Propionate 0.05 % External Ointment (Temovate)Indicat ions:Psoriasis vulgaris Apply topically to affected area 2 times a day. For up to 2 weeks and as needed after. 30 g 1 024 Active Citalopram Hydrobromide 10 MG Oral Tablet (CeleXA)Indicatio ns:Adjustment disorder with mixed anxiety and depressed mood TAKE ONE TABLET BY MOUTH AT BEDTIME 90 Tablet 1 025 Active Omeprazole 20 MG Oral Capsule Delayed Release (PriLOSEC)Indicat ions:Gastroesopha geal reflux disease without esophagitis Take 1 capsule by mouth every day 1 hour before first meal of the day 90 Capsule 025 Active Fluticasone Propionate 50 MCG/ACT Nasal Suspension (Flonase)Indicati ons:Sinus congestion Administer 2 Sprays into each nostril in the morning. 9.9 mL 025 Active Diclofenac Sodium 75 MG Oral Tablet Delayed Release (Voltaren)Indicat ions:Cervical spinal stenosis,Spinal stenosis of lumbar region without neurogenic claudication TAKE 1 TABLET IN THE MORNING AND 1 TABLET AT BEDTIME WITH FOOD 180 Tablet 1 024 2024 Discontinued Losartan Potassium 100 MG Oral Tablet (Cozaar)Indicatio ns:HTN, goal below 140/90 TAKE ONE TABLET BY MOUTH EVERY DAY IN THE MORNING 90 Tablet 1 024 2024 Discontinued Doxycycline Hyclate 100 MG Oral CapsuleIndication s:Acute bacterial sinusitis Take 1 Capsule by mouth in the morning and 1 Capsule before bedtime. Do all this for 10 days. Until gone.. 20 Capsule 024 2024 Discontinued(M edication List Clean Up) predniSONE 20 MG Oral Tablet (Deltasone)Indica tions:Acute bacterial sinusitis Take 2 Tablets by mouth in the morning for 5 days. 10 Tablet 024 2024 Discontinued(M edication List Clean Up) Cefuroxime Axetil 500 MG Oral Tablet (Ceftin)Indicatio ns:Acute maxillary sinusitis, recurrence not specified Take 1 Tablet by mouth in the morning and 1 Tablet before bedtime. 20 Tablet 025 2024 Discontinued(M edication List Clean Up) predniSONE 20 MG Oral Tablet (Deltasone)Indica tions:Acute maxillary sinusitis, recurrence not specified Take 2 Tablets by mouth in the morning for 5 days. 10 Tablet 025 2024 Discontinued(M edication List Clean Up) documented as of this encounter (statuses as of 11/28/2024) Active Problems Problem Noted Date Diagnosed Date Diabetes mellitus without complication 3 Acute pain of right shoulder 11/01/2021 Vitamin D deficiency 11/01/2021 Stage 3a chronic kidney disease 08/09/2020 Overview: Per CKD protocol Cervical spinal stenosis 09/11/2018 DDD (degenerative disc disease), cervical 2017 Gastroesophageal reflux disease without esophagi tis 09/11/2018 Benign hypertensive renal disease 05/28/2018 Indirect hyperbilirubinemia 09/22/2016 Personal history of malignant neoplasm of skin 1 11/13/2015 Overview (09/12/2016): History Squamous Cell Carcinoma upper chest///C44. Psoriasis vulgaris 12/08/2015 Impaired fasting glucose 08/13/2013 Overview (08/13/2013): 08/13: FBG 108 Adjustment disorder with mixed anxiety and depre ssed mood 08/12/2013 Overview (09/22/2013): After R TKA 05/13; started on celexa 08/13 with relief Dyslipidemia, goal LDL below 130 05/18/2008 Overview (03/21/2016): Myalgias on pravastatin QD, crestor QOD, simvastatin QD 10 year ASCVD risk 09/14/2015 = 19% 10 year ASCVD risk 03/21/2016 = 16.7% SPINAL STENOSIS-LUMBAR 01/20/2008 LUMB-LUMBOSAC DISC DEGEN 01/20/2008 Overview (03/02/2015): MRI L spine 03/15: L4-5 disc herniation pressing on R L4 nerve root; L3-4 disc bulge with central canal stenosis GENERAL OSTEOARTHROSIS 07/07/2004 Ventral hernia 05/20/2001 POLYCYTHEMIA 02/22/1999 Overview (09/03/2012): 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/12 - secondary polycythemia, d/t diuretic; erythropoietin normal HTN, goal below 140/90 02/21/1999 Allergic rhinitis due to pollen S/P TKR (total knee replacement) Overview (09/10/2015): right BPH with obstruction/lower urinary tract symptom s documented as of this encounter (statuses as of 11/28/2024) Resolved Problems Problem Noted Date Diagnosed Date Resolved Date Stage 1 chronic kidney disease 06/01/2021 12/14/2021 Prediabetes 12/06/2020 08/16/2023 Overview: Per Prediabetes protocol Chronic kidney disease, stage 3 unspecified 11/23/2020 11/23/2020 Pain in both upper extremities 11/05/2019 11/23/2020 Pain in both lower extremities 11/05/2019 11/23/2020 Kidney disease, chronic, sta ge III (GFR 30-59 ml/min) 01/08/2018 08/12/2020 Overview: Per CKD protocol #1 Left-sided chest pain 01/06/20162015 Overview (01/01/2019): ACS ruled out, stress testing normal ICD-10 update of inactive term Dermatitis 07/28/2015 09/22/2019 Personal history of skin cancer 01/06/2014 09/12/2016 Overview (09/12/2016): Hx Squamous Cell Carcinoma upper chest/// Colitis 04/01/2013 08/13/2013 Overview (04/01/2013): CT abdomen/pelvis 03/27/13 + paracolic inflammatory changes in the region of the proximal descending colon of uncertain etiology but no definite diverticula or evidence of obstruction. Dr. Mcdowell advised outpt f/u for diverticulitis. Superior glenoid labrum lesion 11/24/2010 03/20/2017 Ganglion 11/24/2010 03/20/2017 Rotator cuff rupture 11/24/2010 017 Neurogenic claudication 01/20/200803/02 Overview (02/10/2014): Resolved after laminectomy 2007 SKIN HYPERTRO-ATROP, 2 lesions R cheek 01/06/2000 02/02/2000 ELEV BL PRES W-O HYPERTN 11/24/1998 documented as of this encounter (statuses as of 11/28/2024) Immunizations Name Administration Dates Next Due Pneumococcal Conjugate Vacc, 13 Valent (Prevnar) 02/23/2015 Pneumococcal Polysaccharide PPV23 (Pneumovax) 03/21/2016 Season Influenza, Quad, PF, Adjuvanted, 65+ Yrs, IM (FLUAD) 07/28/2020 Seasonal Influenza Vac., MDV , IM, 0.5 mL (Fluzone) 08/18/2014,09/04/2011,06/27/2010 Seasonal Influenza, High Dos e, Trivalent, PF, IM (Fluzone HD) 06/30/2024,09/14/2015 Seasonal Influenza, MDCK, Tr ivalent, PF, (Flucelvax) 08/12/2013 Seasonal Influenza, PF, 6 M & above, IM , (FluLaval or Fluzone) 09/11/2018,09/20/2017 Seasonal Influenza, Quadriva lent Hd (Fluzone Hd) 06/08/2023,06/07/2022,11/23/2021 Seasonal Influenza, Quadriva lent, No Preserve, IM 09/19/2016 Seasonal Influenza, Trivalen t, Adjuvanted, 65+ YRS, PF, (Fluad) 09/22/2019 TD - Tetanus/Diptheria (ADULT) 08/26/2004 TD, Preservative Free 07/26/2023 TDAP (age 10 and older)(Boostrix) 05/02/2013 Varicella Zoster Vaccine (Adult) 06/01/2016 Zoster Vaccine Recombinant (Shingrix) 03/08/2023 ,11/13/2022 documented as of this encounter Social History Tobacco Use Types Packs/Day Years Used Date Smoking Tobacco: Former Cigarettes 0.5 5 0 03/01/1964 - 03/01/1969 Smokeless Tobacco: Former Chew Quit: 10/01/1973 Alcohol Use Standard Drinks/Week Comments No 0 (1 standard drink = 0.6 oz pur e alcohol) PHQ-2 Answer Date Recorded PHQ Adult Total Score 0 06/30/2024 Hunger Vital Sign Answer Date Recorded Within the past 12 months, y ou worried that your food would run out before you got the money to buy more. Never true 06/30/20 24 Within the past 12 months, t he food you bought just didn't last and you didn't have money to get more. Never true 06/30/2024 Childcare Answer Date Recorded Do you feel overwhelmed with taking care of a child, family member or friend? No 06/30/2024 Does your family need help f inding childcare? (Household - for ages 0-17 years) Not on file 06/30/2024 Clothing Answer Date Recorded Have you been unable to get clothing when it was really needed? No 06/30/2024 Is your family able to get c lothes or diapers when needed? (Household - for ages 0-17 years) Not on file 06/30/2024 Personal Safety Answer Date Recorded Do you feel unsafe or have concerns for your saf ety? No 06/30/2024 Do you have concerns for you r family's safety? (Household - for ages 0-17 years) Not on file 06/30/2024 Utilities Answer Date Recorded Do you have trouble paying y our heating, water, or electric bill? No 06/30/2024 Is your family able to pay t he heat, water, or electric bill? (Household - for ages 0-17 years) Not on file 06/30/2024 Does your family have access to good internet? (Household - for ages 0-17 years) Not on file 06/30/2024 Employment Status Answer Date Recorded Are you unemployed or without regular income? No 06/30/2024 Does the household have a re lar source of income? (Household - for ages 0-17 years) Not on file 06/30/2024 Social Connections Answer Date Recorded How often do you feel lonely or isolated from th ose around you? Never 06/30/2024 Financial Resource Strain Answer Date R ecorded Do you have any trouble payi ng for your medications, or do you think you might in the future? No 06/30/2024 Does your family have troubl e paying for medicine? (Household - for ages 0-17 years) Not on file 06/30/2024 Transportation Needs Answer Date Record ed Do you have trouble getting a ride to medical visits or work? (Adult - for ages 18 years and over) Not on file 06/30/2024 Does your family have a hard time getting a ride to doctors visits? (Household - for ages 0-17 years) Not on file 06/30/2024 Has lack of transportation k ept you from medical appointments, meetings, work, or from getting things needed for daily living? Check all that apply. No 06/30/2024 Do you (or your family) have trouble finding or paying for a ride (transportation)? (Household - for ages 0-17 years) Not on file 06/30/2024 Housing Stability Answer Date Recorded Do you currently live in a s helter or have no steady place to sleep at night? No 06/30/2024 Do you think you are at risk of becoming homeless? (Adult - for ages 18 years and over) Not on file 06/30/2024 Does your family worry about paying for your home or becoming homeless? (Household - for ages 0-17 years) Not on file 0 06/30/2024 Are you homeless or worried that you might be in the future? No 06/30/2024 Are you (or your family) nixon eless or worried that you might be in the future? (Household - for ages 0-17 years) Not on file Food Insecurity Answer Date Recorded Do you need food for this week? No 06/30/2024 Are you able to get enough f ood for your family? (Household - for ages 0-17 years) Not on file 06/30/2024 Does your family need food t his week? (Household - for ages 0-17 years) Not on file 06/30/2024 Do you always have enough fo od for your family? (Household - for ages 0-17 years) Not on file 06/30/2024 Food Insecurity Answer Date Recorded Within the past 12 months, y ou worried that your food would run out before you got the money to buy more. Never true 06/30/20 24 Within the past 12 months, t he food you bought just didn't last and you didn't have money to get more. Never true 06/30/2024 Do you need food for this week? 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 Not on file Not on file Not on fi le documented as of this encounter Last Filed Vital Signs Vital Sign Reading Time Taken Comments Blood Pressure 142/75 11/14/2024 3:53 PM EST Pulse 78 11/14/2024 3:53 PM EST Temperature 36.1 C (96.9 F) 11/14/2024 3:53 PM ES T Respiratory Rate 18 11/14/2024 3:53 PM EST Oxygen Saturation 96% 11/14/2024 3:53 PM EST Inhaled Oxygen Concentration - - Weight 84.4 kg (186 lb) 11/14/2024 3:53 PM EST Height 177.8 cm (5' 10") 11/14/2024 3:53 PM EST Body Mass Index 26.69 11/14/2024 3:53 PM EST documented in this encounter Functional Status * Are you deaf or do you have serious difficulty hearing? Answer Date of Assessment Author No 01/05/2016 9:14 PM Virgil Parks RN * Are you blind or do you have serious difficulty seeing, even when wearing glasses? Answer Date of Assessment Author No 01/05/2016 9:14 PM Virgil Parks RN * Do you have serious difficulty walking or climbing stairs? (5 years old or older) Answer Date of Assessment Author No 01/05/2016 9:14 PM Virgil Parks RN * Do you have difficulty dressing or bathing? (5 years old or older) Answer Date of Assessment Author No 01/05/2016 9:14 PM Virgil Parks RN * Because of a physical, mental, or emotional condition, do you have difficulty doing errands alone such as visiting a doctors office or shopping? (15 years old or older) Answer Date of Assessment Author No 01/05/2016 9:14 PM Virgil Parks RN documented as of this encounter Mental Status * Because of a physical, mental, or emotional condition, do you have serious difficulty concentrating, remembering, or making decisions? (5 years old or older) Answer Entry Date Author No 01/05/2016 9:14 PM Virgil Parks RN documented in this encounter Progress Notes * Roberta Alonzo DO - 11/28/2024 8:27 AM EST I have discussed the patient's management with the medical trainee and agree with the note. Please refer to the documented findings and plan of care. This patient's visit today consisted of an evaluation [facility]. I have reviewed the medical history, physical examination, diagnosis, andplan. Roberta Alonzo DO * Dale Swann MD - 11/13/2024 12:23 PM EST Images from the original note were not included. Pre-Operative Medical Evaluation Procedure Information Type of Surgery: Lumbar Decompression Infusion Referring Physician / Surgeon: Dr. Dyer Date of procedure: 12/02/24 Brief History of Present Illness: 74 y/o Male patient that presents with a history of chronic back pain. He has had multiple surgeries with fused vertebrae in the past. Is able to walk up to 200 ft but then needs to rest. Endorses back pain is getting worse, is having lower back pain into bilateral hips when sitting and at rest. Takes tylenol as need. No recent falls. Does not utilize cane or walker for ambulation. Has has some recent illness/sinusitis that have required two separate courses of antibiotic treatment. Medical History Problem List: Diabetes mellitus without complication ([facility]) (07/26/2023) Acute pain of right shoulder (11/2021) Vitamin D deficiency (11/2021) Stage 1 chronic kidney disease (06/01/2021) Prediabetes (12/06/2020) Chronic kidney disease, stage 3 unspecified ([facility]) (11/23/2020) Stage 3a chronic kidney disease (08/09/2020) Pain in both upper extremities (11/05/2019) Pain in both lower extremities (11/05/2019) Cervical spinal stenosis (09/11/2018) DDD (degenerative disc disease), cervical (09/11/2018) Gastroesophageal reflux disease without esophagitis (09/11/2018) Benign hypertensive renal disease (05/28/2018) Kidney disease, chronic, stage III (GFR 30-59 ml/min) (01/08/2018) Indirect hyperbilirubinemia (09/22/2016) Personal history of malignant neoplasm of skin (09/12/2016) Left-sided chest pain (01/06/2016) Psoriasis vulgaris (12/08/2015) Dermatitis (07/28/2015) Personal history of skin cancer (01/06/2014) Impaired fasting glucose (08/13/2013) Adjustment disorder with mixed anxiety and depressed mood (08/12/2013) Colitis (04/01/2013) Superior glenoid labrum lesion (11/24/2010) Ganglion (11/24/2010) Rotator cuff rupture (11/24/2010) Dyslipidemia, goal LDL below 130 (05/18/2008) Neurogenic claudication (01/20/2008) SPINAL STENOSIS-LUMBAR (01/20/2008) LUMB-LUMBOSAC DISC DEGEN (01/20/2008) GENERAL OSTEOARTHROSIS (07/07/2004) Ventral hernia (05/20/2001) SKIN HYPERTRO-ATROP, 2 lesions R cheek (01/06/2000) POLYCYTHEMIA (02/22/1999) HTN, goal below 140/90 (02/21/1999) ELEV BL PRES W-O HYPERTN (11/24/1998) Allergic rhinitis due to pollen S/P TKR (total knee replacement) BPH with obstruction/lower urinary tract symptoms Current Medications Omeprazole 20 MG Oral Capsule Delayed Release (PriLOSEC), Take 1 capsule by mouth every day 1 hour before first meal of the day Citalopram Hydrobromide 10 MG Oral Tablet (CeleXA), TAKE ONE TABLET BY MOUTH AT BEDTIME Clobetasol Propionate 0.05 % External Ointment (Temovate), Apply topically to affected area 2 timesa day. For up to 2 weeks and as needed after. Losartan Potassium 100 MG Oral Tablet (Cozaar), 100 mg, Oral, Daily(AM) Diclofenac Sodium 75 MG Oral Tablet Delayed Release (Voltaren), TAKE 1 TABLET IN THE MORNING AND 1 TABLET AT BEDTIME WITH FOOD Finasteride 5 MG Oral Tablet (Proscar), 5 mg, Oral, Daily(AM) hydroCHLOROthiazide 25 MG Oral Tablet (Hydrodiuril), 25 mg, Oral, Daily(AM) amLODIPine Besylate 10 MG Oral Tablet (Norvasc), 10 mg, Oral, Daily(AM) Vitamin D 25 MCG (1000 UT) Oral Tablet, 1 Tablet, Oral, Daily(AM) Albuterol Sulfate HFA 108 (90 Base) MCG/ACT Inhalation Aerosol Solution, 2 Puff, Inhalation, Q4H PRN acetaminophen (TYLENOL) 500 MG Tablet, 1,000 mg, Oral, Q6H PRN ASPIRIN EC 81 MG PO TBEC, Take one pill daily Allergies: Bactrim, Metronidazole, Adhesive tape, Ciprofloxacin, Penicillins, Sulfamethoxazole, and Trimethoprim Past Medical History: has a past medical history of Acute pain of right shoulder (11/2021), Allergic rhinitis due to other allergen, Backache, BPH with obstruction/lower urinary tract symptoms, Calculus of kidney (1991), Calculus of kidney, Calculus of ureter, Cough, COVID-19 (10/2020), HTN, goal below 140/90, Neurogenic claudication (01/20/2008), Polycythemia vera(238.4), S/P TKR (total knee replacement), SOB (shortness of breath), Ventral hernia, unspecified, without mention of obstruction or gangrene, and VitaminD deficiency (11/2021). Past Surgical History: has a past surgical history that includes removal of appendix (1991); remove gallbladder (1991); MISCELLANEOUS ORDER (08/2000); vasectomy; cysto/uretero, stone remove (11/1993); colonoscopy (11/2006); remove lumbar spine lamina, 1 seg (02/05/2008); MRI Shoulder without IV Contrast (Left, 11/2010); CT Sinuses without contrast (10/2014); pft complete (10/22/2014); US Aorta (10/22/2014); lumbar spine fusion, post interbody (04/20/2015); exercise stress echo (01/06/2016); MRI C spine without IV contrast (08/29/2016); Arthroplasty Knee Total (05/2013); knee arthroscopy/debridement (Right); Colonoscopy, Diagnostic (Rectum) (N/A, 05/14/2017); spinal fusion, 6 or less vert, post (11/2018); and hc cardio stress test w/nuclear (06/25/2023). Social History: reports that he quit smoking about 55 years ago. His smoking use included cigarettes. He started smoking about 60 years ago. He has a 2.5 pack-year smoking history. He quit smokeless tobacco use about 51 years ago. His smokeless tobacco use included chew. He reports that he does not drink alcohol and does not use drugs. Family History: family history includes Anemia in his brother and sister; Arthritis in his daughter and father; Diabetes (age of onset: 60) in his mother; Fibromyalgia in his daughter; GI problems in his sister; Hypertension in his father, mother, and son; Musculo-skeletal Disorder in his sister; No Known Problemsin his brother, brother, sister, sister, and sister; Stroke in his father. Anesthesia History Type of Anesthesia: General Endotracheal Anesthesia reaction: No History of surgical complications: No Personal history of venous thromboembolic disease: No Physical Exam Vitals: 11/14/24 1553 Temp: 96.9 F (36.1 C) Pulse: 78 Resp: 18 SpO2: 96% BP: 142/75 BMI: 26.69 Physical Exam Constitutional: Appearance: Normal appearance. He is not ill-appearing. HENT: Right Ear: Tympanic membrane, ear canal and external ear normal. Left Ear: Tympanic membrane, ear canal and external ear normal. Nose: Congestion present. No rhinorrhea. Right Turbinates: Swollen. Left Turbinates: Swollen. Right Sinus: No maxillary sinus tenderness or frontal sinus tenderness. Left Sinus: No maxillary sinus tenderness or frontal sinus tenderness. Cardiovascular: Rate and Rhythm: Normal rate and regular rhythm. Pulses: Normal pulses. Heart sounds: Normal heart sounds. No murmur heard. Pulmonary: Effort: Pulmonary effort is normal. No respiratory distress. Breath sounds: Normal breath sounds. No wheezing. Abdominal: General: Abdomen is flat. There is no distension. Palpations: Abdomen is soft. Tenderness: There is no abdominal tenderness. Lymphadenopathy: Cervical: No cervical adenopathy. Neurological: Mental Status: He is alert. I have reviewed the following results: UA, PT/INR, CBC, and BMP Surgical Risk Scoring Revised Cardiac Risk Index (RCRI) High-risk type of surgery (examples include vascular and any open intraperitoneal or intrathoracic procedures): 0=No History of ischemic heart disease (history of myocardial infarction or positive exercise test, current compliant of chest pain considered to be secondary to myocardia ischemia, use of nitrate therapy, or ECG with pathological Q waves; do not count prior coronary revascularization procedure unless one of the other criteria for ischemic heart disease is present): 0=No History of heart failure: 0=No History of cerebrovascular disease: 0=No Diabetes mellitus requiring treatment with insulin: 0=No Preoperative serum creatinine >2.0 mg/dL (177 micromol/L): 0=No Pt has revised cardiac index score of: No Risk Factors- 0.4% (95% CI: 0.1-0.8) Screening for Obstructive Sleep Apnea (STOP-BANG) Do you Snore loudly? 0=No Do you often feel Tired, Fatigued, or Sleep? 0=No Has anyone Observed you Stop Breathing or Choking/Gasping during sleep? 0=No Do you have or are you being treated for High Blood Pressure? 1=Yes BMI over 35? 0=No Age older than 50? 1=Yes Neck size large? (For males - 17 inches or larger, For females - 16 inches or larger) 0=No Male? 1=Yes Score 0-2:low risk CAMELIA, 3-4: intermediate risk of CAMELIA, 5-8: high risk CAMEILA 3 Assessment and Plan Pre-op evaluation *Patient clearance dependent on recent blood work. Will review blood work and clear patient if appropriate once lab work is received. Sinus congestion - Fluticasone Propionate 50 MCG/ACT Nasal Suspension (Flonase); Administer 2 Sprays into each nostril in the morning. *Addendum 11/24/24: After review of patient's labs, patient with pre-op creatinine of 1.59 and BUN of 36. Other labs reviewed as mentioned above and are largely unremarkable. Patient is cleared to for surgery from primary care perspective. Functional Assessment They are able to walk up a flight of stairs, walk two blocks at a moderate pace, do heavy house work like vacuuming, and grocery shop. The patient's functional status is good (greater than 4 METS). 1 MET: 4 METs: 4-10 METs: Can take care of self, such as eat, dress or use the toilet. Can walk to block or go up a flight of steps. Can do heavy house work. Surgical Risk Assessment Patient is indeterminate medical risk for the listed procedure. Medication adjustments: Hold ASA 5-7 days before surgery. Additional consults or testing: Patient has cardiology appointment for clearance on 11/25/24. Cosigned by Roberta Alonzo DO at 11/28/2024 8:27 AM EST documented in this encounter Nursing Notes * [facility]/14/[facility]24 3:55 PM EST Chief Complaint Patient presents with Pre-op Clearance Preoperative Clearance for Lumbar Decompression Infusion with Dr Dyer. Patient is scheduled for Cardiac Clearance scheduled 11/25/2024. Patient had EKG and Labs done through [facility] 11/06/2024. Cold Symptoms Head congestion, runny nose, bloody drainage; symptoms for several months; Patient evaluated twice for same symptoms. Patient was treated with Doxycycline, Ceftin and Prednisone X 2 without relief. Patient has been verbally educated on the need or importance of Diabetic Eye Exam and has declined topic(s). Patient reports he had eye exam done [address] Daron Young at [facility]. Letter faxed. Wt Readings from Last 2 Encounters: 11/14/24 186 lb (84.4 kg) 10/21/24 189 lb (85.7 kg) Body mass index is 26.69 kg/m. BP Readings from Last 2 Encounters: 11/14/24 142/75 10/21/24 150/80 Results for orders placed or performed in visit on 06/30/24 COMPREHENSIVE METABOLIC PANEL Result Value Ref Range BUN 34 (H) 6 - 20 mg/dL CREATININE 1.5 (H) 0.6 - 1.2 mg/dL EGFR 49 (L) >=60 mL/min SODIUM 141 135 - 146 mmol/L POTASSIUM 4.1 3.5 - 5.1 mmol/L CHLORIDE 102 98 - 107 mmol/L CO2 25 22 - 32 mmol/L ANION GAP 14 7 - 15 mmol/L GLUCOSE 102 70 - 120 mg/dL Albumin 4.6 3.8 - 5.0 g/dL AST 24 10 - 50 U/L Alkaline Phosphatase 116 35 - 130 U/L Bilirubin, Total 1.4 (H) <=1.2 mg/dL CALCIUM 9.9 8.4 - 10.2 mg/dL Protein 7.3 6.0 - 8.3 g/dL ALT 22 10 - 50 U/L HEMOGLOBIN A1C Result Value Ref Range Hemoglobin A1C 6.2 (H) 4.0 - 5.6 % Estimated Average Glucose 131 (H) <126 mg/dL LIPID PANEL WITH DIRECT LDL IF TG IS HIGH Result Value Ref Range Triglycerides 206 (H) <=174 mg/dL Cholesterol 222 (H) <200 mg/dL HDL Cholesterol 36 (L) >39 mg/dL Non-HDL Cholesterol 186 (H) <=159 mg/dL LDL Cholesterol 145 (H) <=129 mg/dL ALBUMIN / CREATININE RATIO, URINE Result Value Ref Range Albumin, Random Urine <1.20 mg/dL Creatinine, Random Urine 132 mg/dL Albumin / Creatinine Ratio, Urine <9 <30 mg/g Creat Aec Fall Risk Question 11/14/2024 3:40 PM EST - Filed by Patient I have fallen in the past year. No Sometimes I feel unsteady when I am walking. No I am worried about falling. No Myc Visit Accident Related Question Question 11/14/2024 3:40 PM EST - Filed by Patient Is this visit related to an accident? (i.e work, motor vehicle) No documented in this encounter Plan of Treatment Upcoming Encounters Date Type Department Care Team (Late st Contact Info) Description 12/19/2024 10:00 AM EDT Office Visit [facility] [address] [facility] [address] Karin Wilder MD [address] [facility] [address] 04/14/2025 9:40 AM EDT Office Visit Dermatology [facility] [address] [place] [address] Shayy Romero PA-C [address] [place] [address] 05/25/2025 10:00 AM EDT Office Visit Cardiology, [place] [address] [place] [address] [facility] [address] [facility] [address] 06/05/2025 10:15 AM EDT Office Visit Urology [facility] [address] [place] [address] Elliott Ortega MD [address] [place] [address] 08/18/2025 3:00 PM EST Office Visit [facility] [place] [address] [place] [address] Karin Wilder MD [address] [place] [address] Scheduled Procedures Name Priority Associated Diagnoses Date/Ti me COLONOSCOPY FLEXIBLE PROXIMAL DIAGNOSTIC Recall Colon cancer screening Health Maintenance Due Date Last Done Comments Adult Wellness Visit 2015 COVID-19 Vaccine ( season) 2024 CKD PHOS USE SMARTSET 52532 11/16/202411/01, 06/08/2023, 06/07/2022, Additional history exists HbA1c 12/28/2024 06/30/2024, 11/01, 06/08/2023, Additional history exists GFR 05/06/2025 11/06/2024, 06/03, 01/07/2024, Additional history exists Albumin/Creatinine Ratio 06/30/2025 024, 07/26/2023, 11/23/2021, Additional history exists Depression Screening 06/30/2025 06/30/2024 Diabetic Eye Exam 10/16/2025 10/16/2024, , 01/27/2003, Additional history exists Diabetic Foot Exam 10/21/2025 10/21/2024, 07/26/2023 CKD HGB USE SMARTSET 62748 11/06/202511/06, 11/16/2023, 11/16/2023, Additional history exists DTap/Tdap Vaccines (3 - Td or Tdap) 07/26/2033 07/26/2023, 05/02/2013, 08/26/2004 Fecal Occult Blood Test Discontinued 02/24/20 15, 02/10/2014, 02/04/2013, Additional history exists Pneumococcal Vaccine: 50+ Years Completed 03/21/2016, 02/23/2015 Colonoscopy Discontinued 05/14/2017, 05/14/2017 Colorectal Cancer Screening Discontinued Zoster Vaccines Completed 03/08/2023, 11/01, 06/01/2016 Influenza Vaccine (FLU shot) Completed 06/30/2024, 06/08/2023, 06/07/2022, Additional history exists Cologuard Discontinued HPV (Gardasil) Vaccine Aged Out No lo nger eligible based on patient's age to complete this topic Hepatitis B Vaccine Aged Out No longe r eligible based on patient's age to complete this topic MENINGOCOCCAL (MENACTRA/MENVEO) Aged Out No longer eligible based on patient's age to complete this topic Meningitis B Vaccine (Bexsero/Trumemba) Aged Out No longer eligible based on patient's age to complete this topic Sigmoidoscopy Discontinued documented as of this encounter Medical Devices Not on filedocumented as of this encounter Visit Diagnoses Diagnosis Pre-op evaluation- Primary Preoperative examination, unspecified Sinus congestion Other diseases of nasal cavity and sinuses documented in this encounter Advance Directives * Full Code (Latest Code Status on File) Date Activated Date Inactivated Comments 02/05/2008 1:29 PM 02/07/2008 5:25 PM Care Teams Inside Sales Assistant Relationship Specialty Start Date End Date Karin Wilder MD [address] [place] [address] PCP - General Family Medicine 05/31/21 documented as of this encounter
--- OUTSIDE RECORDS SUMMARY | 2024-12-02 07:51 | External Medical Summary | Summary of Care ---
Author Name Unknown Organization [facility] Address [address] [facility] [place] [address] Phone [phone] Care Team Providers Care [place] Name Role Phone Karin Wilder MD Primary Care Provider [phone] Reason for Visit * Reason Onset Date Comments Medication Refill 11/28/2024 Encounter Details Date Type Department Care Team (Late st Contact Info) Description 11/28/2024 Refill Family Practice, [place] [address] [place] [address] Karin Wilder MD [address] [place] [address] Cervical spinal stenosis; SPINAL STENOSIS-LUMBAR Allergies Active Allergy Reactions Criticality Noted Date Comments Adhesive Tape 10/04/2022 Bactrim Anaphylaxis,Rash High 04/01/2013 Bullseye rash Ciprofloxacin Hives 04/01/2013 After IV cipro @ Metronidazole Anaphylaxis,Rash High 04/01/2013 Penicillins 11/24/1998 Sulfamethoxazole 10/04/2022 Trimethoprim 10/04/2022 documented as of this encounter (statuses as of 11/30/2024) Medications ASPIRIN EC 81 MG PO TBECIndications:HT N, goal below 140/90 Take one pill daily 100 Tab 3 1 Active acetaminophen (TYLENOL) 500 MG TabletIndications: Generalized osteoarthritis Take 2 Tabs by mouth every 6 hours as needed for Pain. 100 Tab 6 Active Albuterol Sulfate HFA 108 (90 Base) MCG/ACT Inhalation Aerosol Solution Inhale 2 Puffs by mouth every 4 hours as needed for Shortness of Breath. 6.7 g 1 1 Active Vitamin D 25 MCG (1000 UT) Oral TabletIndications: Vitamin D deficiency Take by mouth 1 Tablet in the morning. 30 Tablet 5 2 Active amLODIPine Besylate 10 MG Oral Tablet (Norvasc)Indicatio ns:HTN, goal below 140/90 Take 1 Tablet by mouth in the morning. 90 Tablet 3 4 Active hydroCHLOROthiazid e 25 MG Oral Tablet (Hydrodiuril) Take 1 Tablet by mouth in the morning. 90 Tablet 1 4 Active Finasteride 5 MG Oral Tablet (Proscar) Take 1 Tablet by mouth in the morning. 90 Tablet 3 4 Active Clobetasol Propionate 0.05 % External Ointment (Temovate)Indicati ons:Psoriasis vulgaris Apply topically to affected area 2 times a day. For up to 2 weeks and as needed after. 30 g 1 4 Active Citalopram Hydrobromide 10 MG Oral Tablet (CeleXA)Indication s:Adjustment disorder with mixed anxiety and depressed mood TAKE ONE TABLET BY MOUTH AT BEDTIME 90 Tablet 1 5 Active Omeprazole 20 MG Oral Capsule Delayed Release (PriLOSEC)Indicati ons:Gastroesophage al reflux disease without esophagitis Take 1 capsule by mouth every day 1 hour before first meal of the day 90 Capsule 5 Active Fluticasone Propionate 50 MCG/ACT Nasal Suspension (Flonase)Indicatio ns:Sinus congestion Administer 2 Sprays into each nostril in the morning. 9.9 mL 5 Active Rosuvastatin Calcium 5 MG Oral Tablet (Crestor) Take 1 Tablet by mouth in the morning. 30 Tablet 3 5 Active Losartan Potassium 100 MG Oral Tablet (Cozaar)Indication s:HTN, goal below 140/90 TAKE ONE TABLET BY MOUTH EVERY DAY IN THE MORNING 90 Tablet 3 5 Active Diclofenac Sodium 75 MG Oral Tablet Delayed Release (Voltaren)Indicati ons:Cervical spinal stenosis,Spinal stenosis of lumbar region without neurogenic claudication TAKE 1 TABLET IN THE MORNING AND 1 TABLET AT BEDTIME WITH FOOD 180 Tablet 3 5 Active documented as of this encounter (statuses as of 11/30/2024) Active Problems Problem Noted Date Diagnosed Date [...] as of this encounter (statuses as of 11/30/2024) Resolved Problems Problem Noted Date Diagnosed Date [...] as of this encounter (statuses as of 11/30/2024) Immunizations Name Administration Dates Next Due Pneumococcal [...] t, Adjuvanted, 65+ YRS, PF, (Fluad) 09/22/2019 TD, Preservative Free 07/26/2023 TDAP (age 9 [...] fi le documented as of this encounter Functional Status * Are you [...] Virgil Parks RN documented in this encounter Miscellaneous Notes * Telephone Encounter - Rashard Dickens [facility] - 11/30/2024 12:02 AM ESTRefused Prescriptions: Disp Refills Diclofenac Sodium 75 MG Oral Tablet Delaye*180 Ta*3 Sig: TAKE 1TABLET IN THE MORNING AND 1 TABLET AT BEDTIME WITH FOODRefused By: RASHARD DICKENS for Refusal: Too soonReason for Refusal Comment: signed 11/27/24 documented in this encounter Plan of Treatment Upcoming Encounters Date Type Department Care Team (Late st Contact Info) Description 12/19/2024 10:00 AM EDT Office Visit [facility], [place] [address] [facility] [place] [address] Karin Wilder MD [address] [facility] [place] [address] 04/14/2025 9:40 AM EDT Office Visit Dermatology [facility] [place] [address] [place] [address] Shayy Romero PA-C [address] [place] [address] 05/25/2025 10:00 AM EDT Office Visit Cardiology, [place] [address] [facility] [place] [address] Nina Newell CRNP [address] [facility] [place] [address] 06/05/2025 10:15 AM EDT Office Visit Urology [facility] [facility] [address] [facility] [address] [place] [address] Elliott Ortega MD [address] [place] [address] 08/18/2025 3:00 PM EST Office Visit [facility] [place] [address] [place] [address] Karin Wilder MD [address] [facility] [place] [address] Scheduled Procedures Name Priority Associated Diagnoses Date/Ti me COLONOSCOPY FLEXIBLE PROXIMAL DIAGNOSTIC Recall Colon cancer screening Health Maintenance Due Date Last Done Comments Adult Wellness Visit 2015 COVID-19 Vaccine ( season) 2024 CKD PHOS USE SMARTSET 38772 11/16/202411/01, 06/08/2023, 06/07/2022, Additional history exists HbA1c 12/28/2024 06/30/2024, 11/01, 06/08/2023, Additional history exists GFR 05/06/2025 11/06/2024, 06/03, 01/07/2024, Additional history exists Albumin/Creatinine Ratio 06/30/2025 024, 07/26/2023, 11/23/2021, Additional history exists Depression Screening 06/30/2025 06/30/2024 Diabetic Eye Exam 10/16/2025 10/16/2024, , 01/27/2003, Additional history exists Diabetic Foot Exam 10/21/2025 10/21/2024, 07/26/2023 CKD HGB USE SMARTSET 70877 11/06/202511/06, 11/16/2023, 11/16/2023, Additional history exists DTap/Tdap [...] as of this encounter Visit Diagnoses Diagnosis Cervical spinal stenosis Spinal stenosis in cervical region SPINAL STENOSIS-LUMBAR Spinal stenosis, lumbar region, without neurogenic claudication documented in this encounter Advance Directives * Full Code (Latest Code Status on File) Date Activated Date Inactivated Comments 02/05/2008 1:29 PM 02/07/2008 5:25 PM Care Teams [place] Relationship Specialty Start Date End Date Karin Wilder MD [address] [place] [address] PCP - General Family Medicine 05/31/21 documented as of this encounter
--- OUTSIDE RECORDS SUMMARY | 2024-12-02 07:51 | External Medical Summary | Summary of Care ---
Author Name Unknown Organization [facility] Address [address] [facility] [place] [address] Phone [phone] Care Team Providers Care Drug Abuse Worker Name Role Phone Karin Wilder MD Primary Care Provider [phone] Reason for Visit * Reason Onset Date Comments Medication Refill 11/28/2024 Encounter Details Date Type Department Care Team (Late st Contact Info) Description 11/28/2024 Refill Urology [facility] [address] [place] [address] Elliott Ortega MD [address] [place] [address] Allergies Active Allergy Reactions Criticality Noted Date Comments Adhesive Tape 10/04/2022 Bactrim Anaphylaxis,Rash High 04/01/2013 Bullseye rash Ciprofloxacin Hives 04/01/2013 After IV cipro @ Metronidazole Anaphylaxis,Rash High 04/01/2013 Penicillins 11/24/1998 Sulfamethoxazole 10/04/2022 Trimethoprim 10/04/2022 documented as of this encounter (statuses as of 11/28/2024) Medications ASPIRIN EC 81 MG PO TBECIndications:HT [...] encounter Miscellaneous Notes * Telephone Encounter - Nayeli Hillman LPN - 11/28/2024 8:36 AM ESTRefused Prescriptions: Disp Refills Finasteride 5 MG Oral Tablet (Proscar) 90 Tab*3 Sig: Take 1 Tablet by mouth in the morning.Refused By: Cha HILLMAN for Refusal: Refill Not Appropriate------- documented in this encounter Plan of Treatment Upcoming Encounters Date Type Department Care Team (Late st Contact Info) Description 12/19/2024 10:00 AM EDT Office Visit [facility] [place] [address] [place] [address] Karin Wilder MD [address] [facility] [place] [address] 04/14/2025 9:40 AM EDT Office Visit Dermatology [facility] [place] [address] [place] [address] Shayy Romero PA-C [address] [place] [address] 05/25/2025 10:00 AM EDT Office Visit [facility]iology[facility] [address] [facility] [place] [address] Nina Newell CRNP [address] [facility] [place] [address] 06/05/2025 10:15 AM EDT Office Visit Urology [place] [facility] [address] [place] [address] [place] [address] Elliott Ortega MD [address] [place] [address] 08/18/2025 3:00 PM EST [facility] [address] [place] [address] Karin Wilder MD [address] [place] [address] Scheduled Procedures Name Priority Associated Diagnoses Date/Ti me COLONOSCOPY FLEXIBLE PROXIMAL DIAGNOSTIC Recall Colon cancer screening Health Maintenance Due Date Last Done Comments Adult Wellness Visit 2015 COVID-19 Vaccine ( season) 2024 CKD PHOS USE SMARTSET 50731 11/16/202411/01, 06/08/2023, 06/07/2022, Additional history exists HbA1c 12/28/2024 06/30/2024, 11/01, 06/08/2023, Additional history exists GFR 05/06/2025 11/06/2024, 06/03, 01/07/2024, Additional history exists Albumin/Creatinine Ratio 06/30/2025 024, 07/26/2023, 11/23/2021, Additional history exists Depression Screening 06/30/2025 06/30/2024 Diabetic Eye Exam 10/16/2025 10/16/2024, , 01/27/2003, Additional history exists Diabetic Foot Exam 10/21/2025 10/21/2024, 07/26/2023 CKD HGB USE SMARTSET 32568 11/06/202511/06, 11/16/2023, 11/16/2023, Additional history exists DTap/Tdap [...] Not on filedocumented as of this encounter Advance Directives * Full Code (Latest Code Status on File) Date Activated Date Inactivated Comments 02/05/2008 1:29 PM 02/07/2008 5:25 PM Care Teams Drug Abuse Worker Relationship Specialty Start Date End Date Karin Wilder MD [address] [facility] [place] [address] PCP - General Family Medicine 05/31/21 documented as of this encounter
--- OUTSIDE RECORDS SUMMARY | 2024-12-02 07:51 | External Medical Summary | Summary of Care ---
Author Name Unknown Organization [facility] Address [address] [facility] [place] [address] Phone [phone] Care Team Providers Care Epic Kaleidoscope Analyst Name Role Phone Karin Fortune MD Primary Care Provider [phone] Reason for Visit * Reason Comments eRx-Medication Refill Encounter Details Date Type Department Care Team (Late st Contact Info) Description 11/27/[address] [facility] [place] [address] [place] [address] Karin Fortune MD 27 [place] [address] HTN, goal below 140/90; Cervical spinal stenosis; SPINAL STENOSIS-LUMBAR Allergies Active Allergy Reactions Criticality Noted Date Comments Adhesive Tape 10/04/2022 Bactrim Anaphylaxis,Rash High 04/01/2013 Bullseye rash Ciprofloxacin Hives 04/01/2013 After IV cipro @ Metronidazole Anaphylaxis,Rash High 04/01/2013 Penicillins 11/24/1998 Sulfamethoxazole 10/04/2022 Trimethoprim 10/04/2022 documented as of this encounter (statuses as of 11/27/2024) Medications ASPIRIN EC 81 MG PO TBECIndications:H TN, goal below 140/90 Take one pill daily 100 Tab 3 09/04/20 11 Active acetaminophen (TYLENOL) 500 MG TabletIndications :Generalized osteoarthritis Take 2 Tabs by mouth every 6 hours as needed for Pain. 100 Tab 09/19/20 16 Active Albuterol Sulfate HFA 108 (90 Base) MCG/ACT Inhalation Aerosol Solution Inhale 2 Puffs by mouth every 4 hours as needed for Shortness of Breath. 6.7 g 1 10/09/19 21 Active Vitamin D 25 MCG (1000 UT) Oral TabletIndications :Vitamin D deficiency Take by mouth 1 Tablet in the morning. 30 Tablet 5 05/08/20 22 Active amLODIPine Besylate 10 MG Oral Tablet (Norvasc)Indicati ons:HTN, goal below 140/90 Take 1 Tablet by mouth in the morning. 90 Tablet 3 03/04/20 24 Active hydroCHLOROthiazi de 25 MG Oral Tablet (Hydrodiuril) Take 1 Tablet by mouth in the morning. 90 Tablet 1 06/03/20 24 Active Finasteride 5 MG Oral Tablet (Proscar) Take 1 Tablet by mouth in the morning. 90 Tablet 3 06/03/20 24 Active Clobetasol Propionate 0.05 % External Ointment (Temovate)Indicat ions:Psoriasis vulgaris Apply topically to affected area 2 times a day. For up to 2 weeks and as needed after. 30 g 1 06/30/20 24 Active Citalopram Hydrobromide 10 MG Oral Tablet (CeleXA)Indicatio ns:Adjustment disorder with mixed anxiety and depressed mood TAKE ONE TABLET BY MOUTH AT BEDTIME 90 Tablet 1 10/21/19 25 Active Omeprazole 20 MG Oral Capsule Delayed Release (PriLOSEC)Indicat ions:Gastroesopha geal reflux disease without esophagitis Take 1 capsule by mouth every day 1 hour before first meal of the day 90 Capsule 10/31/19 25 Active Fluticasone Propionate 50 MCG/ACT Nasal Suspension (Flonase)Indicati ons:Sinus congestion Administer 2 Sprays into each nostril in the morning. 9.9 mL 11/16/19 25 Active Rosuvastatin Calcium 5 MG Oral Tablet (Crestor) Take 1 Tablet by mouth in the morning. 30 Tablet 3 11/25/19 25 Active Losartan Potassium 100 MG Oral Tablet (Cozaar)Indicatio ns:HTN, goal below 140/90 TAKE ONE TABLET BY MOUTH EVERY DAY IN THE MORNING 90 Tablet 3 11/27/19 25 Active Diclofenac Sodium 75 MG Oral Tablet Delayed Release (Voltaren)Indicat ions:Cervical spinal stenosis,Spinal stenosis of lumbar region without neurogenic claudication TAKE 1 TABLET IN THE MORNING AND 1 TABLET AT BEDTIME WITH FOOD 180 Tablet 3 11/27/19 25 Active Diclofenac Sodium 75 MG Oral Tablet Delayed Release (Voltaren)Indicat ions:Cervical spinal stenosis,Spinal stenosis of lumbar region without neurogenic claudication TAKE 1 TABLET IN THE MORNING AND 1 TABLET AT BEDTIME WITH FOOD 180 Tablet 1 06/03/20 24 2024 Discontinued Losartan Potassium 100 MG Oral Tablet (Cozaar)Indicatio ns:HTN, goal below 140/90 TAKE ONE TABLET BY MOUTH EVERY DAY IN THE MORNING 90 Tablet 1 06/09/20 24 2024 Discontinued documented as of this encounter (statuses as of 11/27/2024) Active Problems Problem Noted Date Diagnosed Date [...] as of this encounter (statuses as of 11/27/2024) Resolved Problems Problem Noted Date Diagnosed Date [...] as of this encounter (statuses as of 11/27/2024) Immunizations Name Administration Dates Next Due Pneumococcal [...] 06/30/2024 Does the household have a re gular source of income? (Household - for ages 0-17 years) Not on file 06/30/2024 Social Connections Answer Date Recorded How often do you feel lonely or isolated from ose around you? Never 06/30/2024 Financial Resource [...] encounter Miscellaneous Notes * Telephone Encounter - Karin Fortune MD - 11/27/2024 3:42 PM ESTSigned Prescriptions: Disp Refills Losartan Potassium 100 MG Oral Tablet (Coz*90 Tab*3 Sig: TAKE ONE TABLET BY MOUTH EVERY DAY IN THE MORNING Authorizing Provider: KARIN FORTUNE Diclofenac Sodium 75 MG Oral Tablet Delaye*180 Ta*3 Sig: TAKE 1 TABLET IN THE MORNING AND 1 TABLET AT BEDTIME WITH FOOD Authorizing Provider: KARIN FORTUNE * Telephone Encounter - Sebastian Miguel LPN - 11/27/2024 2:49 PM ESTPending Prescriptions: Disp Refills Losartan Potassium 100 MG Oral Tablet (Coz*90 Tab*3 Sig: TAKE ONE TABLET BY MOUTH EVERY DAY IN THE MORNING Diclofenac Sodium 75 MG Oral Tablet Delaye*180 Ta*3 Sig:TAKE 1 TABLET IN THE MORNING AND 1 TABLET AT BEDTIME WITH FOOD documented in this encounter Plan of Treatment Upcoming Encounters Date Type Department Care Team (Late st Contact Info) Description 12/19/2024 10:00 AM EDT Office Visit [facility], [place] [address] [facility] [place] [address] Karin Fortune MD 27 [facility] [place] [address] 04/14/2025 9:40 AM EDT Office Visit Dermatology [address] [address] Shayy Romero PA-C [address] [facility] [place] [address] 05/25/2025 10:00 AM EDT Office Visit Cardiology, [place] [address] [place] [address] Nina Newell CRNP [address] [place] [address] 06/05/2025 10:15 AM EDT Office Visit Urology [facility] [address] [place] [address] Elliott Ortega MD [address] [place] [address] 08/18/2025 3:00 PM EST Office Visit [facility], [place] [address] [facility] [address] Karin Fortune MD [facility] [address] Scheduled Procedures Name Priority Associated Diagnoses Date/Ti me COLONOSCOPY FLEXIBLE PROXIMAL DIAGNOSTIC Recall Colon cancer screening Health Maintenance Due Date Last Done Comments Adult Wellness Visit 2015 COVID-19 Vaccine ( season) 2024 CKD PHOS USE SMARTSET 31928 11/16/202411/01, 06/08/2023, 06/07/2022, Additional history exists HbA1c 12/28/2024 06/30/2024, 11/01, 06/08/2023, Additional history exists GFR 05/06/2025 11/06/2024, 06/03, 01/07/2024, Additional history exists Albumin/Creatinine Ratio 06/30/2025 024, 07/26/2023, 11/23/2021, Additional history exists Depression Screening 06/30/2025 06/30/2024 Diabetic Eye Exam 10/16/2025 10/16/2024, , 01/27/2003, Additional history exists Diabetic Foot Exam 10/21/2025 10/21/2024, 07/26/2023 CKD HGB USE SMARTSET 05422 11/06/202511/06, 11/16/2023, 11/16/2023, Additional history exists DTap/Tdap [...] as of this encounter Visit Diagnoses Diagnosis HTN, goal below 140/90 Unspecified essential hypertension Cervical spinal stenosis Spinal stenosis in cervical region SPINAL STENOSIS-LUMBAR Spinal stenosis, lumbar region, without neurogenic claudication documented in this encounter Advance Directives * Full Code (Latest Code Status on File) Date Activated Date Inactivated Comments 02/05/2008 1:29 PM 02/07/2008 5:25 PM Care Teams Epic Kaleidoscope Analyst Relationship Specialty Start Date End Date Karin Fortune MD [address] [facility] [address] [place] [address] PCP - General Family Medicine 05/31/21 documented as of this encounter
--- OUTSIDE RECORDS SUMMARY | 2024-12-02 07:51 | External Medical Summary | Summary of Care ---
Author Name Unknown Organization [facility] Address [address] [facility] [place] [address] Phone [phone] Care Team Providers Care Commercial Sheet Metal Foreman Name Role Phone Karin Wilder MD Primary Care Provider [phone] Reason for Visit * Reason Comments Pre-op Clearance Encounter Details Date Type Department Care Team (Late st Contact Info) Description 11/25/2024 11:00 AM EST Office Visit Cardiology, [place] [address] [facility] [place], [place] [id number] Nina Newell CRNP [address] [place] [address] Pre-operative cardiovascular examination*; HTN, goal below 140/90; Dyslipidemia, goal LDL below 100 Allergies Active Allergy Reactions Criticality Noted Date Comments Adhesive Tape 10/04/2022 Bactrim Anaphylaxis,Rash High 04/01/2013 Bullseye rash Ciprofloxacin Hives 04/01/2013 After IV cipro @ Metronidazole Anaphylaxis,Rash High 04/01/2013 Penicillins 11/24/1998 Sulfamethoxazole 10/04/2022 Trimethoprim 10/04/2022 documented as of this encounter (statuses as of 11/25/2024) Medications ASPIRIN EC 81 MG PO TBECIndications:HT [...] the morning. 90 Tablet 1 4 Active Diclofenac Sodium 75 MG Oral Tablet Delayed Release (Voltaren)Indicati ons:Cervical spinal stenosis,Spinal stenosis of lumbar region without neurogenic claudication TAKE 1 TABLET IN THE MORNING AND 1 TABLET AT BEDTIME WITH FOOD 180 Tablet 1 4 Active Finasteride 5 MG Oral Tablet (Proscar) Take 1 Tablet by mouth in the morning. 90 Tablet 3 4 Active Losartan Potassium 100 MG Oral Tablet (Cozaar)Indication s:HTN, goal below 140/90 TAKE ONE TABLET BY MOUTH EVERY DAY IN THE MORNING 90 Tablet 1 4 Active Clobetasol Propionate 0.05 % External [...] the morning. 30 Tablet 3 5 Active documented as of this encounter (statuses as of 11/25/2024) Active Problems Problem Noted Date Diagnosed Date [...] as of this encounter (statuses as of 11/25/2024) Resolved Problems Problem Noted Date Diagnosed Date [...] as of this encounter (statuses as of 11/25/2024) Immunizations Name Administration Dates Next Due Pneumococcal [...] 03/01/1969 Smokeless Tobacco: Former Chew Quit: 10/01/1973 Tobacco Cessation:Counseling Given: Not Answered Alcohol Use Standard Drinks/Week Comments No 0 [...] No 06/30/2024 Does the household have a [facility] source of income? (Household - for ages [...] Sign Reading Time Taken Comments Blood Pressure 140/82 11/25/2024 10:57 AM EST Pulse 68 11/25/2024 10:57 AM EST Temperature - - Respiratory Rate - - Oxygen Saturation - - Inhaled Oxygen Concentration - - Weight 85.3 kg (188 lb 1.6 oz) 11/25/2024 10:57 AM EST Height 177.8 cm (5' 10") 11/25/2024 10:57 AM EST Body Mass Index 26.99 11/25/2024 10:57 AM EST documented in this encounter Functional Status [...] Date Author No 01/05/2016 9:14 PM Virgil Praks RN documented in this encounter Patient Instructions * Patient Instructions* Nina Newell CRNP - 11/25/2024 11:14 AM EST Monitor blood pressure with home cuff and reach out if blood pressure is consistently trending above 140 over 90. Start taking CoQ-10 supplement daily for two weeks and then start taking rosuvastatin 5 mg by mouthonce daily. Repeat bloodwork with fasting lipid panel and comprehensive metabolic panel in 6 monthsafter starting medication. documented in this encounter Procedure Notes * Daniel Sheppard DO - 11/25/2024 11:01 AM ESTAssociated Order(s): EKG COMPLETE (TRACING AND INTERP) REASON FOR STUDY: Pre op;Pre op CONCLUSIONS: Sinus rhythm with Premature supraventricular complexes Anterior infarct (cited on or before 30-Oct-2019) Abnormal ECG When compared with ECG of 08-Jun-2023 08:40, No significant change Ventricular Rate: 71 Atrial Rate: 71 OR Interval: 182 QRS Duration: 100 QT/QTc: 402/436 ms P-R-T [place]: 66 : 26 : 42 degrees documented in this encounter Nursing Notes * Dexter Brock CMA - 11/25/2024 10:57 AM EST Patient was identified by name and date of . Name: Jesus Durham Date of : (1950). Examination Room: 3 Reason for Visit: Chief Complaint Patient presents with Pre-op Clearance Interim Hospitalization(s): NO Interim Emergency room visit(s): NO Current symptoms: None Medications reviewed and are up to date via: Patient's memory Would you like to sign up for [facility]? ALREADY ACTIVE Patient was instructed to not get up on the exam table/exam chair until directed and assisted by their provider; patient is to remain seated in the chair/ wheelchair/ exam table/ exam chair for fall prevention and safety reasons. Patient is aware to have assistance to step down off exam table/exam chair with personnel. Patient voiced full comprehension of instructions. Dexter Brock CMA 10:57 AM 11/25/2024 documented in this encounter Plan of Treatment Upcoming Encounters Date Type Department Care Team (Late st Contact Info) Description 12/19/2024 10:00 AM EDT Office Visit [facility] [place] [address] [place] [address] Karin Wilder MD 27 [facility] [place] [address] 04/14/2025 9:40 AM EDT Office Visit Dermatology [facility] [address] [place] [address] Shayy Romero PA-C [address] [place] [address] 05/25/2025 10:00 AM EDT Office Visit Cardiology, [place] [address] [place] [address] Nina Newell CRNP 400 [facility] [place] [address] 06/05/2025 10:15 AM EDT Office Visit Urology [facility] [address] [facility] [address] [place] [address] Elliott Ortega MD 27 [place] [address] 08/18/2025 3:00 PM EST Office Visit [facility] [place] [address] [facility] [place] [address] Karin Wilder MD [address] [facility] [address] [place] [address] Scheduled Orders Name Type Priority Associated Diagnoses Orde r Schedule COMPREHENSIVE METABOLIC PANEL Lab Routine Dyslipidemia, goal LDL below 100 Expected: 05/25/2025, Expires: 11/25/2025 LIPID PANEL WITH DIRECT LDL IF TG IS HIGH Lab Routine Dyslipidemia, goal LDL below 100 Expected: 05/25/2025, Expires: 11/25/2025 Scheduled Procedures Name Priority Associated Diagnoses Date/Ti me COLONOSCOPY FLEXIBLE PROXIMAL DIAGNOSTIC Recall Colon cancer screening Health Maintenance Due Date Last Done Comments Adult Wellness Visit 2015 COVID-19 Vaccine ( season) 2024 CKD PHOS USE SMARTSET 98919 11/16/202411/01, 06/08/2023, 06/07/2022, Additional history exists *NEPHROLOGY REFERRAL DUE TO RESISTANT HTN 11/17/2024 HbA1c 12/28/2024 06/30/2024, 11/01, 06/08/2023, Additional history exists GFR 05/06/2025 11/06/2024, 06/03, 01/07/2024, Additional history exists Albumin/Creatinine Ratio 06/30/202506/30/ 024, 07/26/2023, 11/23/2021, Additional history exists Depression Screening 06/30/2025 06/30/2024 Diabetic Eye Exam 10/16/2025 10/16/2024, , 01/27/2003, Additional history exists Diabetic Foot Exam 10/21/2025 10/21/2024, 07/26/2023 CKD HGB USE SMARTSET 57156 11/06/202511/06, 11/16/2023, 11/16/2023, Additional history exists DTap/Tdap [...] Not on filedocumented as of this encounter Procedures Procedure Name Priority Date/Time Associated Diagnosis Comments HC ECG TRACING ONLY Routine 11/25/2024 1 1:01 AM EST Dyslipidemia, goal LDL below 100 documented in this encounter Results * EKG COMPLETE (TRACING AND INTERP) (11/25/2024 11:01 AM EST) 11/25/2024 11:0 1 AM EST Narrative Procedure Note Daniel Sheppard DO - 11/25/2024 11:01 AM EST REASON FOR STUDY: Pre op;Pre op CONCLUSIONS: Sinus rhythm with Premature supraventricular complexes Anterior infarct (cited on or before 30-Oct-2019) Abnormal ECG When compared with ECG of 08-Jun-2023 08:40, No significant change Ventricular Rate: 71 Atrial Rate: 71 OR Interval: 182 QRS Duration: 100 QT/QTc: 402/436 ms P-R-T [place]: 66 : 26 : 42 degrees us Nina CARPENTER EKG Rosana l Result [facility] CARD[facility] documented in this encounter Visit Diagnoses Diagnosis Pre-operative cardiovascular examination- Primary HTN, goal below 140/90 Unspecified essential hypertension Dyslipidemia, goal LDL below 100 Other and unspecified hyperlipidemia documented in this encounter Advance Directives * Full Code (Latest Code Status on File) Date Activated Date Inactivated Comments 02/05/2008 1:29 PM 02/07/2008 5:25 PM Care Teams Commercial Sheet Metal Foreman Relationship Specialty Start Date End Date Karin Wilder MD [address] [facility] [place] [address] PCP - General Family Medicine 05/31/21 documented as of this encounter
--- OUTSIDE RECORDS SUMMARY | 2024-12-02 07:51 | External Medical Summary | Summary of Care ---
Author Name Unknown Organization [facility] Address [address] [facility] [place] [address] Phone [phone] Care Team Providers Care Field Auto Appraiser Name Role Phone Karin Wilder MD Primary Care Provider [phone] Reason for Visit * Reason Comments Pre-op Clearance Preoperative Clearan ce for Lumbar Decompression Infusion with Dr Dyer. Patient is scheduled for Cardiac Clearance scheduled 11/25/2024. Patient had EKG and Labs done through [facility] 11/06/2024. Cold Symptoms Head congestion, run ny nose, bloody drainage; symptoms for several months; Patient evaluated twice for same symptoms. Patient was treated with Doxycycline, Ceftin and Prednisone X 2 without relief. Encounter Details Date Type Department Care Team (Late st Contact Info) Description 11/14/2024 4:00 PM EST Office Visit [facility] [place] [address] [place] [address] Dale Swann MD 27 [place] [address] Pre-op evaluation*; Sinus congestion Allergies Active Allergy [...] 09/04/20 11 Active acetaminophen (TYLENOL) 500 MG TabletIndications: Generalized [...] morning. 90 Tablet 3 03/04/20 24 Active hydroCHLOROthiazid e 25 MG Oral Tablet (Hydrodiuril) Take 1 Tablet by mouth in the morning. 90 Tablet 1 06/03/20 24 Active Diclofenac Sodium 75 MG Oral Tablet Delayed Release (Voltaren)Indicati ons:Cervical spinal stenosis,Spinal stenosis of lumbar region without neurogenic claudication TAKE 1 TABLET IN THE MORNING AND 1 TABLET AT BEDTIME WITH FOOD 180 Tablet 1 06/03/20 24 Active Finasteride 5 MG Oral Tablet (Proscar) Take 1 Tablet by mouth in the morning. 90 Tablet 3 06/03/20 24 Active Losartan Potassium 100 MG Oral Tablet (Cozaar)Indication s:HTN, goal below 140/90 TAKE ONE TABLET BY MOUTH EVERY DAY IN THE MORNING 90 Tablet 1 06/09/20 24 Active Clobetasol Propionate 0.05 % External [...] the morning. 9.9 mL 11/16/19 25 Active Doxycycline Hyclate 100 MG Oral CapsuleIndications :Acute bacterial sinusitis Take 1 Capsule by mouth in the morning and 1 Capsule before bedtime. Do all this for 10 days. Until gone.. 20 Capsule 09/26/20 24 025 Discontin ued(Medic ation List Clean Up) predniSONE 20 MG Oral Tablet (Deltasone)Indicat ions:Acute bacterial sinusitis Take 2 Tablets by mouth in the morning for 5 days. 10 Tablet 09/26/20 24 025 Discontin ued(Medic ation List Clean Up) Cefuroxime Axetil 500 MG Oral Tablet (Ceftin)Indication s:Acute maxillary sinusitis, recurrence not specified Take 1 Tablet by mouth in the morning and 1 Tablet before bedtime. 20 Tablet 10/21/19 25 025 Discontin ued(Medic ation List Clean Up) predniSONE 20 MG Oral Tablet (Deltasone)Indicat ions:Acute maxillary sinusitis, recurrence not specified Take 2 Tablets by mouth in the morning for 5 days. 10 Tablet 10/21/19 25 025 Discontin ued(Medic ation List Clean Up) documented as of this [...] No 06/30/2024 Does the household have a [facility] source of income? (Household - for ages [...] Virgil Parks RN documented in this encounter Nursing Notes * Lo Chamberlain[facility] - 11/14/2024 3:55 PM EST Chief Complaint Patient presents with Pre-op Clearance Preoperative Clearance for Lumbar Decompression Infusion with Dr Dyer. Patient is scheduled for Cardiac Clearance scheduled 11/25/2024. Patient had EKG and Labs done through [facility] 11/06/2024. Cold Symptoms Head congestion, runny nose, bloody drainage; symptoms for several months; Patient evaluated twice for same symptoms. Patient was treated with Doxycycline, Ceftin and Prednisone X 2 without relief. Patient has been verbally educated on the need or importance of Diabetic Eye Exam and has declined topic(s). Patient reports he had eye exam done [address] Daron Young at [facility]. Letter faxed. Wt Readings from Last 2 [...] AM EST Office Visit Cardiology, [place] [address] [place] [address] [facility] New[facility] [address] [facility] [address] 12/19/2024 10:00 AM EDT Office Visit [facility] [place] [address] [place] [address] Karin Wilder MD 27 [facility] [place] [address] 04/14/2025 9:40 AM EDT Office Visit Dermatology [facility] [address] [place] [address] Shayy Romero PA-C [address] [place] [address] 06/05/2025 10:15 AM EDT Office Visit Urology [facility] [address] [facility] [address] [place] [address] Elliott Ortega MD 27 [place] [address] 08/18/2025 3:00 PM EST Office Visit [facility] [place] [address] [facility] [place] [address] Karin Wilder MD [address] [facility] [place] [address] Scheduled Procedures Name Priority Associated Diagnoses Date/Ti me COLONOSCOPY FLEXIBLE PROXIMAL DIAGNOSTIC Recall Colon cancer screening Health Maintenance Due Date Last Done Comments Adult Wellness Visit 2015 COVID-19 Vaccine ( season) 2024 CKD PHOS USE SMARTSET 83826 11/16/202411/01, 06/08/2023, 06/07/2022, Additional history exists *NEPHROLOGY REFERRAL DUE TO RESISTANT HTN 11/17/2024 HbA1c 12/28/2024 06/30/2024, 11/01, 06/08/2023, Additional history exists GFR 05/06/2025 11/06/2024, 06/03, 01/07/2024, Additional history exists Albumin/Creatinine Ratio 06/30/2025 024, 07/26/2023, 11/23/2021, Additional history exists Depression Screening 06/30/2025 06/30/2024 Diabetic Eye Exam 10/16/2025 10/16/2024, , 01/27/2003, Additional history exists Diabetic Foot Exam 10/21/2025 10/21/2024, 07/26/2023 CKD HGB USE SMARTSET 58231 11/06/202511/06, 11/16/2023, 11/16/2023, Additional history exists DTap/Tdap [...] 1:29 PM 02/07/2008 5:25 PM Care Teams Field Auto Appraiser Relationship Specialty Start Date End Date Karin Wilder [facility] [address] [facility] [address] PCP - General Family Medicine 05/31/21 documented as of this encounter
--- OUTSIDE RECORDS SUMMARY | 2024-12-02 07:52 | External Medical Summary | Summary of Care ---
Author Name Unknown Organization [facility] Address [address] [facility] [place] [address] Phone [phone] Care Team Providers Care Surgical Product Sales Consultant Name Role Phone Karin Wilder MD Primary Care Provider [phone] Reason for Visit * Reason Comments Pre-op Clearance Preoperative Clearan ce for Lumbar Decompression Infusion with Dr Dyer. Patient is scheduled for Cardiac Clearance scheduled 11/25/2024. Patient had EKG and Labs done through [facility] 11/06/2024. Cold Symptoms Head congestion, run ny nose, bloody drainage; symptoms for several months; Patient evaluated twice for same symptoms. Patient was treated with Doxycycline, Ceftin and Prednisone X 2 without relief. Encounter Details Date Type Department Care Team (Late st Contact Info) Description 11/14/2024 4:00 PM EST Office Visit [facility] [place] [address] [facility] [place] [address] Dale Swann MD 27 [facility] [place] [address] Pre-op evaluation*; Sinus congestion Allergies Active Allergy Reactions Criticality Noted Date Comments Adhesive Tape 10/04/2022 Bactrim Anaphylaxis,Rash High 04/01/2013 Bullseye rash Ciprofloxacin Hives 04/01/2013 After IV cipro @ Metronidazole Anaphylaxis,Rash High 04/01/2013 Penicillins 11/24/1998 Sulfamethoxazole 10/04/2022 Trimethoprim 10/04/2022 documented as of this encounter (statuses as of 11/16/2024) Medications ASPIRIN EC 81 MG PO TBECIndications:HT [...] as of this encounter (statuses as of 11/16/2024) Active Problems Problem Noted Date Diagnosed Date [...] as of this encounter (statuses as of 11/16/2024) Resolved Problems Problem Noted Date Diagnosed Date [...] as of this encounter (statuses as of 11/16/2024) Immunizations Name Administration Dates Next Due Pneumococcal [...] this encounter Nursing Notes * [facility] 11/14/2024 3:55 PM EST Chief Complaint Patient presents with Pre-op Clearance Preoperative Clearance for Lumbar Decompression Infusion with Dr Dyer. Patient is scheduled for Cardiac Clearance scheduled 11/25/2024. Patient had EKG and Labs done through [facility] 11/06/2024. Cold Symptoms Head congestion, runny nose, bloody drainage; symptoms for several months; Patient evaluated twice for same symptoms. Patient was treated with Doxycycline, Ceftin and Prednisone X 2 without relief. Patient has been verbally educated on the need or importance of Diabetic Eye Exam and has declined topic(s). Patient reports he had eye exam done [address] Daron Young at [place] [facility]. Letter faxed. Wt Readings from Last [...] 11/25/2024 11:00 AM EST Office Visit Cardiology, [place] [address] [place] [address] Nina Newell CRNP [address] [place] [address] 12/19/2024 10:00 AM EDT [facility] [place] [address] Karin Wilder MD 27 [facility] [place] [address] 04/14/2025 9:40 AM EDT Office Visit Dermatology [facility] [address] [place] [address] Shayy Romero PA-C [address] [place] [address] 06/05/2025 10:15 AM EDT Office Visit Urology [facility] [address] [place] [address] [place] [address] Elliott Ortega MD [address] [place] [address] 08/18/2025 3:00 PM EST [facility] [place] [address] Karin Wilder MD 27 [facility] [place] [address] Scheduled Procedures Name Priority Associated Diagnoses Date/Ti me COLONOSCOPY FLEXIBLE PROXIMAL DIAGNOSTIC Recall Colon cancer screening Health Maintenance Due Date Last Done Comments Adult Wellness Visit 2015 Diabetic Eye Exam 04/10/2024 04/10/2023, , 02/23/1999 COVID-19 Vaccine ( season) 2024 CKD HGB USE SMARTSET 62947 11/16/202411/16, 11/16/2023, 06/08/2023, Additional history exists CKD PHOS USE SMARTSET 78274 11/16/202411/01, 06/08/2023, 06/07/2022, Additional history exists GFR 12/28/2024 06/30/2024, 04/0 05/2024, 11/16/2023, Additional history exists HbA1c 12/28/2024 06/30/2024, 11/01, 06/08/2023, Additional history exists Albumin/Creatinine Ratio 06/30/2025 024, 07/26/2023, 11/23/2021, Additional history exists Depression Screening 06/30/2025 06/30/2024 Diabetic Foot Exam 10/21/2025 10/21/2024, 07/26/2023 DTap/Tdap Vaccines (3 - Td or Tdap) [...] 1:29 PM 02/07/2008 5:25 PM Care Teams Surgical Product Sales Consultant Relationship Specialty Start Date End Date Karin Wilder MD 27 [facility] [place] [address] PCP - General Family Medicine 05/31/21 documented as of this encounter
--- OUTSIDE RECORDS SUMMARY | 2024-12-02 07:52 | External Medical Summary | Summary of Care ---
Author Name Unknown Organization [facility] Address [address] [place] [facility] [place] [address] Phone [phone] Care Team Providers Care Spooler Operator Name Role Phone Karin Wilder MD Primary Care Provider [phone] Encounter Details Date Type Department Care Team (Late st Contact Info) Description 11/18/2024 Orders Only Family Practice, [place] [address] [place] [address] Karin Wilder MD [address] [place] [address] Allergies Active Allergy Reactions Criticality Noted Date Comments Adhesive Tape 10/04/2022 Bactrim Anaphylaxis,Rash High 04/01/2013 Bullseye rash Ciprofloxacin Hives 04/01/2013 After IV cipro @ Metronidazole Anaphylaxis,Rash High 04/01/2013 Penicillins 11/24/1998 Sulfamethoxazole 10/04/2022 Trimethoprim 10/04/2022 documented as of this encounter (statuses as of 11/18/2024) Medications ASPIRIN EC 81 MG PO TBECIndications:HT [...] in the morning. 9.9 mL 5 Active documented as of this encounter (statuses as of 11/18/2024) Active Problems Problem Noted Date Diagnosed Date [...] as of this encounter (statuses as of 11/18/2024) Resolved Problems Problem Noted Date Diagnosed Date [...] as of this encounter (statuses as of 11/18/2024) Immunizations Name Administration Dates Next Due Pneumococcal [...] No 06/30/2024 Does the household have a [facility] source of income? (Household - for ages [...] Virgil Parks RN documented in this encounter Plan of Treatment Upcoming Encounters Date Type Department Care Team (Late st Contact Info) Description 11/25/2024 11:00 AM EST Office Visit Cardiology, [place] [address] [facility] [place] [address] Nina Newell CRNP [address] [facility] [place] [address] 12/19/2024 10:00 AM EDT Office Visit [facility] [address] [facility] [place] [address] Karin Wilder MD [address] [facility] [place] [address] 04/14/2025 9:40 AM EDT Office Visit Dermatology [facility], [address] [place] [address] Shayy Romero PA-C [address] [facility] [place] [address] 06/05/2025 10:15 AM EDT Office Visit Urology [facility] Low [address] [place] [address] Elliott Ortega MD [address] [place] [address] 08/18/2025 3:00 PM EST Office Visit [facility] [place] [address] [facility] [place] [address] Karin Wilder MD 27 [facility] [place] [address] Scheduled Procedures Name Priority Associated Diagnoses Date/Ti me COLONOSCOPY FLEXIBLE PROXIMAL DIAGNOSTIC Recall Colon cancer screening Health Maintenance Due Date Last Done Comments Adult Wellness Visit 2015 Diabetic Eye Exam 04/10/2024 04/10/2023, , 02/23/1999 COVID-19 Vaccine ( season) 2024 CKD HGB USE SMARTSET 74897 11/16/202411/06, 11/16/2023, 11/16/2023, Additional history exists CKD PHOS USE SMARTSET 54637 11/16/202411/01, 06/08/2023, 06/07/2022, Additional history exists *NEPHROLOGY REFERRAL DUE TO RESISTANT HTN 11/17/2024 GFR 12/28/2024 11/06/2024, 06/03, 01/07/2024, Additional history exists HbA1c 12/28/2024 06/30/2024, 11/01, 06/08/2023, Additional history exists Albumin/Creatinine Ratio 06/30/202506/30/ 024, [...] Procedure Name Priority Date/Time Associated Diagnosis Comments CHEMISTRY-OUTSIDE Routine 11/06/2024 documented in this encounter Results * (ABNORMAL) CHEMISTRY-OUTSIDE (11/06/2024) Not all results display below - see scan for full detail OUTSIDE LAB (SEE SCANNED REPORT) Comment:SCAN INCLUDES - PREA DMISSION TESTING: BMP, PT, INR, PTT, CBCD, UA CREATININE 1.59(A) 0.6 - 1.4 MG/DL OUTSIDE LAB (SEE SCANNED REPORT) EGFR 44.99 OUTSIDE LA B (SEE SCANNED REPORT) POTASSIUM 4.5 3.5 - 5.1 MMOL/L OUTSIDE LAB (SEE SCANNED REPORT) GLUCOSE 98 70 - 99 MG/DL OUTSIDE LAB (SEE SCANNED REPORT) HOURS FASTING OUTSID E LAB (SEE SCANNED REPORT) TRIGLYCERIDES-OU TSIDE LAB OUTSIDE LAB (SEE SCANNED REPORT) CHOLESTEROL-OUTS [facility] LAB OUTSIDE LAB (SEE SCANNED REPORT) HDL-OUTSIDE LAB OUTS [facility] LAB (SEE SCANNED REPORT) CHOL/HDL RATIO-OUTSIDE LAB OUTSIDE LAB (SEE SCANNED REPORT) LDL (CALCULATED)-OUT SIDE LAB OUTSIDE LAB (SEE SCANNED REPORT) LDL (DIRECT MEASURE)-OUTSIDE LAB OUTSIDE LAB (SEE SCANNED REPORT) HEMOGLOBIN, D5Z-RPPHGFT LAB OUTSIDE LAB (SEE SCANNED REPORT) PHOSPHORUS-OUTSI DE LAB OUTSIDE LAB (SEE SCANNED REPORT) PTH-OUTSIDE LAB OUTS [facility] LAB (SEE SCANNED REPORT) MICROALBUMIN RATIO-OUTSIDE LAB OUTSIDE LAB (SEE SCANNED REPORT) PROTEIN, UA-OUTSIDE LAB NEGATIVE NEGATIVE OUTSIDE LAB (SEE SCANNED REPORT) HGB 15.1 14.0 - 18.0 G/DL OUTSIDE LAB (SEE SCANNED REPORT) 11/06/2024 us Yong Dyer DO LABORATORY Fin al Result OUTSIDE LAB (SEE SCANNED REPORT) documented in this encounter Advance Directives * Full Code (Latest Code Status on File) Date Activated Date Inactivated Comments 02/05/2008 1:29 PM 02/07/2008 5:25 PM Care Teams Spooler Operator Relationship Specialty Start Date End Date Karin Wilder MD [address] [place] [address] PCP - General Family Medicine 05/31/21 documented as of this encounter
--- OUTSIDE RECORDS SUMMARY | 2024-12-02 07:52 | External Medical Summary | Summary of Care ---
Author Name Unknown Organization [facility] Address [address] [place] [facility] [address] Phone [phone] Care Team Providers Care Director Of Intelligence Name Role Phone Karin Wilder MD Primary Care Provider [phone] Encounter Details Date Type Department Care Team (Late st Contact Info) Description 11/20/2024 Orders Only Family Practice, [place] [address] [facility] [place] [address] Karin Wilder MD [address] [facility] [place] [address] Allergies Active Allergy Reactions Criticality Noted Date Comments Adhesive Tape 10/04/2022 Bactrim Anaphylaxis,Rash High 04/01/2013 Bullseye rash Ciprofloxacin Hives 04/01/2013 After IV cipro @ Metronidazole Anaphylaxis,Rash High 04/01/2013 Penicillins 11/24/1998 Sulfamethoxazole 10/04/2022 Trimethoprim 10/04/2022 documented as of this encounter (statuses as of 11/20/2024) Medications ASPIRIN EC 81 MG PO TBECIndications:HT [...] as of this encounter (statuses as of 11/20/2024) Active Problems Problem Noted Date Diagnosed Date [...] as of this encounter (statuses as of 11/20/2024) Resolved Problems Problem Noted Date Diagnosed Date [...] as of this encounter (statuses as of 11/20/2024) Immunizations Name Administration Dates Next Due Pneumococcal [...] Does the household have a [facility] source of income? (Household - for ages [...] 11/25/2024 11:00 AM EST Office Visit Cardiology, [place] [address] [facility] [place] [address] Nina Newell CRNP [address] [facility] [place] [address] 12/19/2024 10:00 AM EDT Office Visit [facility] [address] [facility] [place] [address] Karin Wilder MD [address] [facility] [place] [address] 04/14/2025 9:40 AM EDT Office Visit Dermatology [facility], [address] [place] [address] Shayy Romero PA-C [address] [facility] [place] [address] 06/05/2025 10:15 AM EDT Office Visit Urology E[facility] Low [address] [place] [address] Elliott Ortega MD [address] [place] [address] 08/18/2025 3:00 PM EST [facility] [place] [address] Karin Wilder MD 27 [facility] [place] [address] Scheduled Procedures Name Priority Associated Diagnoses Date/Ti me COLONOSCOPY FLEXIBLE PROXIMAL DIAGNOSTIC Recall Colon cancer screening Health Maintenance Due Date Last Done Comments Adult Wellness Visit 2015 Diabetic Eye Exam 04/10/2024 10/16/2024, , 01/27/2003, Additional history exists COVID-19 Vaccine ( season) 2024 CKD PHOS USE SMARTSET 06233 11/16/202411/01, 06/08/2023, 06/07/2022, Additional history exists *NEPHROLOGY REFERRAL DUE TO RESISTANT HTN 11/17/2024 HbA1c 12/28/2024 06/30/2024, 11/01, 06/08/2023, Additional history exists GFR 05/06/2025 11/06/2024, 06/03, 01/07/2024, Additional history exists Albumin/Creatinine Ratio 06/30/2025 024, 07/26/2023, 11/23/2021, Additional history exists Depression Screening 06/30/2025 06/30/2024 Diabetic Foot Exam 10/21/2025 10/21/2024, 07/26/2023 CKD HGB USE SMARTSET 54545 11/06/202511/06, 11/16/2023, 11/16/2023, Additional history exists DTap/Tdap [...] Procedure Name Priority Date/Time Associated Diagnosis Comments DIABETIC EYE EXAM Routine 10/16/2024 documented in this encounter Results * DIABETIC EYE EXAM (10/16/2024) 10/16/2024 us History Per Patient OTHER Final Result OUTSIDE LAB (SEE SCANNED REPORT) documented in this encounter Advance Directives * Full Code (Latest Code Status on File) Date Activated Date Inactivated Comments 02/05/2008 1:29 PM 02/07/2008 5:25 PM Care Teams Director Of Intelligence Relationship Specialty Start Date End Date Karin Wilder MD [address] [facility] [address] [place] [address] PCP - General Family Medicine 05/31/21 documented as of this encounter
[2024-12-02] MEDS ORDERED: ATROPINE SULFATE 0.1 MG/ML 10ML SYR IV PRN (08:09)
[2024-12-02] MEDS ORDERED: fentaNYL citrate PF 100 MCG/2 ML VIAL IV PRN (08:09)
[2024-12-02] MEDS ORDERED: ONDANSETRON INJ 2 MG/ML 2 ML VIAL IV PRN ×2 (08:09→13:49)
[2024-12-02] MEDS ORDERED: ePHEDrine sulfate 50 MG/ML AMP IV PRN (08:09)
[2024-12-02] MEDS ORDERED: HYDROmorphone INJ 1 MG/ML SYRINGE IV PRN (08:09)
[2024-12-02] MEDS ORDERED: DEXAMETHASONE SOD INJ 4 MG/ML VIAL ONE ×2 (08:39→08:40)
[2024-12-02] MEDS ORDERED: ROCURONIUM BROMIDE 10 MG/ML 5 ML VIAL IV ONE ×2 (08:39→10:02)
[2024-12-02] MEDS ORDERED: PROPOFOL IV EMULSION 10 MG/ML 20 ML VIAL IV ONE (08:39)
[2024-12-02] MEDS ORDERED: GLYCOPYRROLATE 0.2 MG/ML VIAL ONE (08:39)
[2024-12-02] MEDS ORDERED: LIDOCAINE 2% 2 ML VIAL/AMP(20MG/ML) INFIL ONE (08:39)
[2024-12-02] MEDS ORDERED: ONDANSETRON INJ 2 MG/ML 2 ML VIAL ONE (08:39)
[2024-12-02] MEDS ORDERED: fentaNYL citrate PF 100 MCG/2 ML VIAL ONE (08:40)
--- NOTE | 2024-12-02 08:55 | History & Physical Bridge Note ---
Date of Service December 02, 2024 History & Physical Bridge Note I have examined the patient, reviewed the History & Physical and in the interval since the performance of the History & Physical I have noted the following changes of clinical significance: no changes noted
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
[2024-12-02] MEDS ORDERED: HYDROmorphone INJ 2 MG/ML SYR/VIAL ONE (09:50)
[2024-12-02] MEDS ORDERED: MAG SULFATE 50% 1GM/2ML VIAL IV ONE (10:03)
[2024-12-02] MEDS ORDERED: ePHEDrine sulfate 50 MG/ML AMP ONE (10:03)
[2024-12-02] MEDS: ceFAZolin 330 MG/ML 1 GM VIAL ONE (10:12)
[2024-12-02] MEDS: BUPIVACAINE/EPINEPHRINE 0.25% 1:200,000 30 ML VIAL ONE (10:12)
[2024-12-02] MEDS ORDERED: PHENYLEPHRINE 100MCG/ML 5ML SYR ONE ×2 (10:41→11:04)
[2024-12-02] MEDS: FLOSEAL HEMOSTATIC MATRIX 10ML TOP ONE (11:06)
[2024-12-02] MEDS ORDERED: SUGAMMADEX SODIUM 200 MG/2 ML VIAL IV ONE (11:10)
--- NOTE | 2024-12-02 11:22 | Operative Report ---
Post Operative Report Pre & Post Diagnosis Operation Date: 12/02/24 09:05 Pre-Op Diagnosis: Two-level lumbosacral spondylosis with radiculopathy Post-Op Diagnosis: Two-level lumbosacral spondylosis with radiculopathy I identified the patient and participated in the time-out.: Yes Procedure Operation Date: 12/02/24 09:05 Actual Procedures #1 lumbar decompression bilateral facetectomies and foraminotomies T12-L1 L1-L2. #2 posterior spinal fusion T12-L1 2. #3 placement posterior instrumentation with i pedicle screws at L1-L2 and connectors at L2-L3. #4 interbody fusion L1- L2. #5 placement of Spira 9 x 26 mm cage at L1-L2. #6 placement locally harvested morselized autograft posterior gutters. #7 placement infuse collagen sponge, with Koros in the posterior lateral gutters and os design interbody space. #8 application of versa wrap of the exposed dura. Surgeon Yong Dyer, DO Pug Mill Operator Helper Vanesa Gama Estimated Blood Loss 300 Findings Consistent with Post-Op Diagnosis Specimens None Indications This is a 74-year-old male presents with the above-mentioned diagnosis significant course of nonoperative care is here for surgical invention. Description of Procedure Patient was met with identified informed consent obtained. Patient was then taken to the operative suite underwent the patient placed in a prone position injected without Jesus frame. All bony prominences well-padded eyes inspected to ensure no external precipice spinal. This point the thoracolumbar spine was prepped and draped in sterile fashion. Sharp dissection with the assistance of a regards from down to and exposing the lamina transverse processes of T12-L1 and instrumentation at L2-L3. Then proceeded to perform a complete laminectomy of L1 with bilateral medial facetectomies and foraminotomies addressing severe spinal stenosis followed by partial laminectomy of T12 with bilateral medial facetectomies address all subarticular stenosis. This pedicle screws were then placed in T12-L1 bilaterally and connectors attached to the jenny between L2-L3. By way of a transforaminal portion right a complete discectomy of L1-L2 was performed endplates guided to subcortical the bone and a 9 x 26 mm Spira cage filled with os design bone graft tapped in position. Proper size rods were then placed compressed locked in final position bilaterally. The transverse processes of T12 L1-L2 burred to subcortical bleeding bone. Infuse collagen sponge combined with Koros and local graft placed in the posterior gutters. Versa wrap placed over the exposed dura. 15 round CALI drain inserted. The incision was then closed with 1 Vicryl the fascia 2-0 Vicryl subcutaneously and 4 Monocryl for final skin closure. Steri-Strips sterile dressing placed. Patient waken taken PACU stable condition. Please note spinal cord monitoring was utilized throughout the procedure no changes noted. Vanesa Gama was present at the entire surgery and while the patient positioning complex portion of the surgery and final closure. I attest to the content of the Intraoperative Record and any orders documented therein. Any exceptions are noted below.
--- NOTE | 2024-12-02 11:59 | Fluoroscopy Report ---
FL lumbar spine 2-3V CLINICAL HISTORY: L1-L2 DECOMPRESSION T12-L2 FUSION COMPARISON STUDY: Lumbar spine radiographs April 20, 2015. FLUOROSCOPY TIME: 22 seconds. Ka,r: 19.23 mGy FLUOROSCOPIC IMAGES: 2 FINDINGS: Exact localization is difficult given partial visualization of the lumbar spine. However, f indings suggest interval L1-L2 discectomy with interbody spacer placement. Interval placement of bila teral pedicle screws at the T12 and L1 levels are noted. Pre-existing lumbar fusion is partially imag ed. IMPRESSION: Fluoroscopy provided during L1-L2 discectomy. Interbody fusion and placement of bilatera l pedicle screws at the T12 and L1 levels. ACT 112: Negative or not required by law. Electronically signed by: Devon Nixon M.D. 12/02/2024 11:58 AM
--- NOTE | 2024-12-02 12:57 | Anesthesiology Progress Note ---
Date of Service December 02, 2024 Anesthesia Post Procedure Vital Signs Vital Signs: Temp Pulse Pulse Resp BP Pulse Ox O2 Del Method 12/02/24 12:35 80 16 121/74 95 Oxymask 12/02/24 12:25 81 16 117/74 97 Oxymask 12/02/24 12:15 84 12 124/70 98 Oxymask 12/02/24 12:05 85 16 111/69 97 Oxymask 12/02/24 11:55 83 14 124/70 97 Oxymask 12/02/24 11:45 100 H 16 118/80 98 Oxymask 12/02/24 11:36 36.7 C 91 H 18 151/91 H 97 Oxymask 12/02/24 07:13 36.4 C L 66 20 152/87 H 95 Room Air O2 Flow Rate 12/02/24 12:35 2 12/02/24 12:25 2 12/02/24 12:15 4 12/02/24 12:05 4 12/02/24 11:55 4 12/02/24 11:45 4 12/02/24 11:36 6 12/02/24 07:13 Pain Intensity Bilateral Back: Pain Intensity: 4 Transfer of Care Handoff Completed per policy Notes Mental Status: alert / awake / arousable Patient Amnestic to Procedure: Yes Nausea / Vomiting: adequately controlled Pain: adequately controlled Airway Patency, RR, SpO2: stable & adequate BP & HR: stable & adequate Hydration State: stable & adequate Anesthetic Complications: no major complications apparent and Pt Satisfied with anesthetic care Notes: Following induction of anesthesia, noted widened QRS on rhythm strip with what looked like ST depressions. BP remained stable. Arrhythmia resolved after 5-10 min and then came back once during case and since resolved. Post op EKG showed LBBB which was not noted on pre-op EKG. Patient has history of HTN but no other cardiac history. Denies chest pain, diaphoresis, SOB. Consulted cardiology for further work up during admission.
[2024-12-02] MEDS ORDERED: hydrOXYzine HCl 25 MG TAB PO PRN (13:49)
[2024-12-02] MEDS ORDERED: traMADol HCL 50 MG TABLET PO PRN (13:49)
[2024-12-02] MEDS ORDERED: LORazepam 2 MG/1 ML VIAL IV PRN (13:49)
[2024-12-02] MEDS ORDERED: NALOXONE HCL 0.4 MG/1 ML VIAL/CARP IV PRN (13:49)
[2024-12-02] MEDS ORDERED: METOCLOPRAMIDE HCL INJ 5 MG/ML 2 ML VIAL IV PRN (13:49)
[2024-12-02] MEDS ORDERED: ONDANSETRON 4 MG OD TAB PO PRN (13:49)
[2024-12-02] MEDS ORDERED: FAMOTIDINE 20 MG TAB PO PRN (13:49)
[2024-12-02] MEDS ORDERED: HYDROmorphone INJ 0.5 MG/0.5 ML SYR IV PRN (13:49)
[2024-12-02] MEDS ORDERED: ACETAMINOPHEN 1,000 MG/100 ML VIAL IV PRN (13:49)
[2024-12-02] MEDS ORDERED: ALUMINUM/MAGNESIUM SUSP 30 ML UDC PO PRN (13:49)
[2024-12-02] MEDS ORDERED: DO NOT ADMINISTER PNEUMOCOCCAL VACCINE PRN (13:49)
[2024-12-02] MEDS ORDERED: SOD PHOSPHATE/SOD BIPHOSPHATE ENEMA 132 ML BTL PR PRN (13:49)
[2024-12-02] MEDS ORDERED: PROMETHAZINE 12.5 MG/50.5 ML BAG IV PRN (13:49)
[2024-12-02] MEDS ORDERED: DO NOT ADMINISTER FLU VACCINE PRN (13:49)
[2024-12-02] MEDS ORDERED: diphenhydrAMINE Capsule 25 MG CAP PO PRN (13:49)
[2024-12-02] MEDS ORDERED: MAGNESIUM HYDROXIDE SUSP 30 ML UDC PO PRN (13:49)
[2024-12-02] MEDS ORDERED: LORazepam 0.5 MG TAB PO PRN (13:49)
[2024-12-02] MEDS ORDERED: bisacodyL 10 MG SUPP PR PRN (13:49)
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
[2024-12-02 15:56] LABS: Anion Gap 7 (3-11); BUN Creatinine Ratio 21.6 (10-20); Blood Urea Nitrogen 30 mg/dl (6-23); Calcium 8.9 mg/dl (8.6-10.3); Carbon Dioxide 28 mmol/L (21-32); Chloride 104 mmol/L (98-107); Creatinine Clr Calc Pharmacy 45.9 ml/min; Glucose 195 mg/dl (70-99(Fasting)); Magnesium 2.5 mg/dl (1.7-2.4); Potassium 3.6 mmol/L (3.5-5.1); Sodium 139 mmol/L (136-145)
[2024-12-02 16:02] LABS: Troponin I High Sensitivity < 2.3 pg/ml (0-20)
[2024-12-02 16:11] LABS: Thyroid Stimulating Hormone 3.216 uIu/ml (0.300-4.500)
[2024-12-02] MEDS: CLINDAMYCIN/D5W 600 MG/50 ML BAG IV SCH (17:12)
[2024-12-02] MEDS: oxyCODONE HCL IR 5 MG TAB (IMMEDIATE RELEASE) PO PRN (17:16)
[2024-12-02] MEDS: DOCUSATE SODIUM/SENNA 50/8.6MG TAB PO SCH (20:27)
[2024-12-02] MEDS: CITALOPRAM 20 MG TAB PO SCH (20:27)
[2024-12-02] MEDS: HYDROmorphone INJ 1 MG/ML SYRINGE IV PRN (20:28)
[2024-12-03] MEDS: POLYETHYLENE (MIRALAX) 17 GM PACK PO SCH (06:00)
[2024-12-03] MEDS: FINASTERIDE 5 MG TAB PO SCH (08:06)
[2024-12-03] MEDS: PANTOprazole 40 MG TAB PO SCH (08:06)
[2024-12-03] MEDS: ASPIRIN 81 MG ECTAB PO SCH (08:06)
[2024-12-03] MEDS: FLUTICASONE PROPIONATE NA SPR 16 GM BTL PRN (08:07)
[2024-12-03] MEDS: LOSARTAN POTASSIUM 50 MG TAB PO SCH (08:07)
[2024-12-03] MEDS: amLODIPine BESYLATE 5 MG TAB PO SCH (08:08)
[2024-12-03] MEDS: ROSUVASTATIN CALCIUM 5 MG TAB PO SCH (08:09)
[2024-12-03] MEDS: CHOLECALCIFEROL 25 MCG (1000 UNITS) TAB PO SCH (08:09)
[2024-12-03] MEDS: dexAMETHasone 6 MG in SYRINGE 0 ML IV SCH (08:09)
[2024-12-03] MEDS ORDERED: hydroCHLOROthiazide 25 MG TAB PO SCH (09:00)
[2024-12-03 09:12] LABS: Basophils # (auto) 0.02 K/uL (0.00-0.20); Basophils % (auto) 0.1 %; Hematocrit (blood only) 35.6 % (42.0-52.0); Hemoglobin 11.7 g/dl (14.0-18.0); Immature Granulocytes # (auto) 0.05 K/uL (0.01-0.20); Immature Granulocytes % (auto) 0.4 %; Lymphocytes % (auto) 6.6 %; Mean Corpuscular Hemoglobin 29.9 pg (25.0-34.0); Mean Corpuscular Hgb Conc 32.9 g/dL (32.0-36.0); Mean Platelet Volume 10.1 fL (9.4-12.4); Monocytes # (auto) 1.21 K/uL (0.11-0.59); Monocytes % (auto) 8.8 %; Neutrophils # (auto) 11.56 K/uL (1.40-6.50); Neutrophils % (auto) 84.1 %; Platelet Count 241 K/uL (130-400); RDW Coefficient of Variation 13.7 % (11.5-14.5); RDW Standard Deviation 45.5 fL (36.4-46.3); Red Blood Count 3.91 M/uL (4.70-6.10); White Blood Count 13.74 K/ul (4.8-10.8)
[2024-12-03 09:29] LABS: BUN Creatinine Ratio 21.1 (10-20); Creatinine Clr Calc Pharmacy 43.4 ml/min; Magnesium 2.4 mg/dl (1.7-2.4); Potassium 4.2 mmol/L (3.5-5.1)
[2024-12-03 09:36] LABS: Troponin I High Sensitivity 5.8 pg/ml (0-20)
[2024-12-03] MEDS: ACETAMINOPHEN 500 MG TAB PO PRN (10:58)
--- NOTE | 2024-12-03 11:07 | Cardiology Progress Note ---
Date of Service December 03, 2024 Assessment & Plan (1) LBBB (left bundle branch block): (2) S/P spinal surgery: (3) Hypertension: Plan 12/02/24 Patient admitted post spinal surgery - lumbar decompression. During surgery anesthesia noted intermittent conduction change on telemetry. (strips not available) Post op EKG was performed which demonstrated normal sinus rhythm with new LBBB. Hospitalist and cardio consulted for admission and further work up. Patient is currently asymptomatic in the post op setting. No chest pain/dyspnea. Discussed with hospitalist. Recommend transfer to telemetry unit to monitor for arrhythmias. Repeat EKG Update labs - HS troponin and trend, BMP, magnesium, TSH Echo to be ordered. Patient had outpatient work up due to abnormal EKG in 2022 - old anteroseptal infarct During work up he had echo which revealed normal LVEF, no wall motion abnor malities Nuclear stress test revealed no inducible ischemia He also had ZIO done which demonstrated NSR with non sustained atrial tach. During telemetry, patient also had conduction changes consistent with intermittent LBBB. Continue/resume outpatient meds including ASA, statin, losartan, metoprolol. Further recommendations pending review of lab results, echo results, and telemetry. At this time, patient is asymptomatic. 12/03/24: Patient doing well POD lumbar decompression. working with therapy at time of eval. No cardiac complaints. HS troponin negative x3 with new LBBB. Echo - prelim report - normal LVEF. Formal report pending Continue outpatient cardiac meds including ASA, statin, losartan, metoprolol. No further cardiac testing warranted at this time. Will sign off. Please contact aeronautical project engineer cardiology provider with additional questions or concerns. Case discussed with Dr. Arredondo I spent a total of 30 minutes on the date of service in preparation, delivery, and documentation of the care provided to this patient, excluding any time spent in the performance of separately billed services. Caitlyn Allen PA-C Department of Cardiology, [facility] This chart was completed in part utilizing Speech Voice Recognition Software. Grammatical errors, random word insertions, pronoun errors, and incomplete sentences are an occasional consequence of this system due to software limitations, ambient noise, and hardware issues. Any formal questions or concerns about the content, text, or information contained within the body of this dictation should be directly addressed to the provider for clarification. Admission and Anticipated Discharge Date Admission Date: December 02, 2024 Supervising Physician Co-Signing Physician Notes I have personally performed a history and physical examination on the patient. I have reviewed the advance practitioner's documentation, and I agree with, and take responsibility for the plan of care. 74-year-old male status post spinal surgery. EKG with left bundle branch block QRS duration 136ms. Prior cardiac studies demonstrating incomplete left bundle branch block as well as transient left bundle branch block on ZIO monitor. He is asymptomatic from a cardiovascular perspective. Echocardiogram demonstrates preserved LV systolic function. No further inpatient cardiac testing or intervention recommended at this time. Cardiology will sign off. Please call with additional concerns/questions. I spent a total of 25 minutes on the date of service in preparation, delivery, and documentation of the care provided to this patient, excluding any time spent in the performance of separately billed services. Thee Arredondo DO, [facility] Subjective Patient seen during therapy session today. Sitting at edge of bed. Denies chest pain or SOB this morning or overnight. No cardiac complaints. Review of Systems Review of Systems: All systems reviewed & are unremarkable except as noted in HPI & below Physical Exam Constitutional: WD/WN, vitals as above well developed; no acute distress Neck: trachea midline, no thyromegaly Respiratory: normal respiratory effort, lungs clear to auscultation Cardiovascular: Rate/Rhythm: regular rate and regular rhythm Heart Sounds: no murmur Vessels: no JVD Extremities: no edema Gastrointestinal (Abdomen): normal bowel sounds, soft, nontender, no hepatosplenomegaly Musculoskeletal: no cyanosis or clubbing, extremities motor strength 5/5 Neurologic: PERRL, EOMI, accommodation nl, no face palsy, no dysarthria Results & Data Vital Signs (Past 12 Hours) Vital Signs Temp Pulse Pulse Pulse Resp BP Pulse Ox 12/03/24 10:15 84 12/03/24 08:38 36.7 C 87 18 120/72 93 12/03/24 07:59 12/03/24 04:00 36.7 C 82 18 118/69 94 12/03/24 00:00 36.6 C 78 18 116/68 93 O2 Del Method O2 Flow Rate 12/03/24 10:15 12/03/24 08:38 Nasal Cannula 2 12/03/24 07:59 Nasal Cannula 2 12/03/24 04:00 Nasal Cannula 2 12/03/24 00:00 Nasal Cannula 2 Laboratory Results Cardiac Enzymes 12/02/24 12/02/24 12/03/24 Range/Units 15:05 20:28 08:44 Troponin I High Sens < 2.3 4.9 5.8 (0-20) pg/ml CBC 12/03/24 Range/Units 08:44 WBC 13.74 H (4.8-10.8) K/ul RBC 3.91 L (4.70-6.10) M/uL Hgb 11.7 L (14.0-18.0) g/dl Hct 35.6 L (42.0-52.0) % Plt Count 241 (130-400) K/uL Neut # (Auto) 11.56 H (1.40-6.50) K/uL Lymph # (Auto) 0.90 L (1.20-3.40) K/uL [place] # (Auto) 1.21 H (0.11-0.59) K/uL Eos # (Auto) 0.00 (0.00-0.50) K/uL Baso # (Auto) 0.02 (0.00-0.20) K/uL Comprehensive Metabolic Panel 12/02/24 12/03/24 Range/Units 15:05 08:44 Sodium 139 139 (136-145) mmol/L Potassium 3.6 4.2 (3.5-5.1) mmol/L Chloride 104 102 (98-107) mmol/L Carbon Dioxide 28 30 (21-32) mmol/L BUN 30 H 31 H (6-23) mg/dl Creatinine 1.39 1.47 H (0.6-1.4) mg/dl Glucose 195 H 156 H (70-99(Fasting)) mg/dl Calcium 8.9 9.0 (8.6-10.3) mg/dl Intake and Output 12/02/24 12/03/24 12/03/24 22:59 06:59 14:59 Intake Total 410 / 3435 50 / 3435 240 / 240 Output Total 481 / 1566 455 / 1566 Balance -71 / 9 -405 / 186 240 / 240 Intake: IV 50 / 375 50 / 375 Clindamycin/D5w 600 mg In 50 ml 50 / 100 50 / 100 @ 100 mls/hr IV Q8H RILEY Rx#: [id number] Oral 360 / 360 240 / 240 Output: Urine Amount (Catheter) 406 / 1206 400 / 1206 Fierro/Indwelling 406 / 1206 400 / 1206 Drain Output 75 / 360 55 / 360 Medial Back CALI 75 / 360 55 / 360 Other: Weight 84 kg Weight Measurement Method Built in [facility] Diagnostic Findings Telemetry reviewed: NSR with underlying bundle branch block. HR's 80's Echo results - pending Medications Administered Current Inpatient Medications Acetaminophen (Acetaminophen 500 Mg Tab) 1,000 mg PO Q8H PRN PRN Reason: MILD Pain Scale 1,2,3 & Pre PT Stop: 01/01/25 13:48 Last Admin: 12/03/24 10:58 Dose: 1,000 mg Al Hydrox/Mg Hydrox/Simethicone (Aluminum/Magnesium Susp 30 Ml Udc) 30 ml PO Q6H PRN PRN Reason: Dyspepsia Stop: 01/01/25 13:48 Amlodipine Besylate (Amlodipine Besylate 5 Mg Tab) 10 mg PO DAILY [facility] Stop: 01/02/25 08:59 Last Admin: 12/03/24 08:08 Dose: 10 mg Aspirin (Aspirin 81 Mg Ectab) 81 mg PO QAM RILEY Stop: 01/02/25 08:59 Last Admin: 12/03/24 08:06 Dose: 81 mg Bisacodyl (Bisacodyl 10 Mg Supp) 10 mg RI DAILY PRN PRN Reason: Constipation Stop: 01/01/25 13:48 Citalopram Hydrobromide (Citalopram 20 Mg Tab) 10 mg PO HS [facility] Stop: 01/01/25 20:59 Last Admin: 12/02/24 20:27 Dose: 10 mg Diphenhydramine HCl (Diphenhydramine Capsule 25 Mg Cap) 25 mg PO Q6H PRN PRN Reason: Allergic Rhinitis/Insomnia Stop: 01/01/25 13:48 Famotidine (Famotidine 20 Mg Tab) 20 mg PO Q12H PRN PRN Reason: Dyspepsia Stop: 01/01/25 13:48 Finasteride (Finasteride 5 Mg Tab) 5 mg PO DAILY RILEY Stop: 01/02/25 08:59 Last Admin: 12/03/24 08:06 Dose: 5 mg Fluticasone Propionate (Fluticasone Propionate Na Spr 16 Gm Btl) 1 sprays NA HS PRN PRN Reason: Congestion Stop: 01/01/25 13:48 Last Admin: 12/03/24 08:07 Dose: 1 sprays Hydromorphone HCl (Hydromorphone Inj 0.5 Mg/0.5 Ml Syr) 0.5 mg IV Q3H PRN PRN Reason: MODERATE Pain (Scale 4,5,6) & Pre PT Stop: 12/16/24 13:48 Hydromorphone HCl (Hydromorphone Inj 1 Mg/Ml Syringe) 1 mg IV Q3H PRN PRN Reason: SEVERE Pain (Scale 7,8,9,10) Stop: 12/16/24 13:48 Last Admin: 12/03/24 04:53 Dose: 1 mg Hydroxyzine HCl (Hydroxyzine Hcl 25 Mg Tab) 25 mg PO Q8H PRN PRN Reason: Anxiety Stop: 01/01/25 13:48 Acetaminophen (Ofirmev) 1,000 mg in 100 mls @ 400 mls/hr IV Q8H PRN PRN Reason: Pain Rating 1-3 & Pre PT Stop: 12/03/24 13:49 Promethazine HCl (Phenergan) 12.5 mg in 50.5 mls @ 202 mls/hr IV Q6H PRN PRN Reason: Nausea And Vomiting Stop: 01/01/25 13:48 Dexamethasone 6 mg/ Syringe 1.5 mls @ 1 mls/min IV DAILY [facility] Stop: 12/05/24 09:02 Last Admin: 12/03/24 08:09 Dose: 1 mls/min Influenza Virus Vaccine Quadrival (Do Not Administer Flu Vaccine) 1 each N/A PRN PRN PRN Reason: Notification Stop: 01/01/25 13:48 Lorazepam (Lorazepam 0.5 Mg Tab) 0.5 mg PO Q8H PRN PRN Reason: Sedation/Anxiety Stop: 01/01/25 13:48 Lorazepam (Lorazepam 2 Mg/1 Ml Vial) 0.5 mg IV Q8H PRN PRN Reason: Sedation/Anxiety Stop: 01/01/25 13:48 Losartan Potassium (Losartan Potassium 50 Mg Tab) 100 mg PO QAM [facility] Stop: 01/02/25 08:59 Last Admin: 12/03/24 08:07 Dose: 100 mg Magnesium Hydroxide (Magnesium Hydroxide Susp 30 Ml Udc) 30 ml PO Q24H PRN PRN Reason: Constipation Stop: 01/01/25 13:48 Metoclopramide HCl (Metoclopramide Hcl Inj 5 Mg/Ml 2 Ml Vial) 10 mg IV Q6H PRN PRN Reason: Nausea &/or Vomiting Stop: 01/01/25 13:48 Naloxone HCl (Naloxone Hcl 0.4 Mg/1 Ml Vial/Carp) 0.1 mg IV Q5M PRN PRN Reason: Oversedation/Resp depression Stop: 01/01/25 13:48 Ondansetron HCl (Ondansetron Inj 2 Mg/Ml 2 Ml Vial) 4 mg IV Q6H PRN PRN Reason: Nausea &/or Vomiting Stop: 01/01/25 13:48 Ondansetron HCl (Ondansetron 4 Mg Od Tab) 4 mg PO Q6H PRN PRN Reason: Nausea Stop: 01/01/25 13:48 Oxycodone HCl (Oxycodone Hcl Ir 5 Mg Tab (Immediate Release)) 5 - 10 mg PO Q4H PRN PRN Reason: Pain & Pre PT Stop: 12/16/24 13:48 Last Admin: 12/02/24 17:16 Dose: 10 mg Pantoprazole Sodium (Pantoprazole 40 Mg Tab) 40 mg PO QAM RILEY Stop: 01/02/25 08:59 Last Admin: 12/03/24 08:06 Dose: 40 mg Pneumococcal Polyvalent Vaccine (Do Not Administer Pneumococcal Vaccine) 1 each N/A PRN PRN PRN Reason: Notification Stop: 01/01/25 13:48 Polyethylene Glycol (Polyethylene (Miralax) 17 Gm Pack) 17 gm PO Q6 [facility] Stop: 01/02/25 05:59 Last Admin: 12/03/24 11:00 Dose: 17 gm Rosuvastatin Calcium (Rosuvastatin Calcium 5 Mg Tab) 5 mg PO DAILY [facility]LEY Stop: 01/02/25 08:59 Last Admin: 12/03/24 08:09 Dose: 5 mg Senna/Docusate Sodium (Docusate Sodium/Senna 50/8.6mg Tab) 2 tab PO HS RILEY Stop: 01/01/25 20:59 Last Admin: 12/02/24 20:27 Dose: 2 tab Sodium Biphosphate/Sodium Phosphate (Sod Phosphate/Sod Biphosphate Enema 132 Ml Btl) 132 ml RI ONE PRN PRN Reason: Constipation Stop: 01/01/25 13:48 Tramadol HCl (Tramadol Hcl 50 Mg Tablet) 50 - 100 mg PO Q4H PRN PRN Reason: Moderate-Severe pain & Pre PT Stop: 01/01/25 13:48 Vitamin D (Cholecalciferol 25 Mcg (1000 Units) Tab) 25 mcg PO DAILY RILEY Stop: 01/02/25 08:59 Last Admin: 12/03/24 08:09 Dose: 25 mcg (3) Hypertension Hypertension type: primary hypertension Qualified Code(s): I10 - Essential (primary) hypertension
--- NOTE | 2024-12-03 12:11 | Orthopedic Progress Note ---
Date of Service December 03, 2024 Assessment & Plan (1) Two-level lumbosacral spondylosis with radiculopathy: Plan: At this time we will continue physical therapy monitor his CALI output. He may have some neural irritation from the procedure affecting his foot. Will see how he progresses. Would have been transferred to the orthopedic floor when cleared with medicine. Admission and Anticipated Discharge Date Admission Date: December 02, 2024 Subjective Back pain is controlled. He is tolerating ambulation and physical therapy. He is struggling with some right foot pain. Physical Exam Physical Exam: On exam he is good strength testing. He has some tenderness palpation of the right foot. Results & Data Vital Signs (Past 12 Hours) Vital Signs Temp Pulse Pulse Pulse Resp BP Pulse Ox 12/03/24 10:15 84 12/03/24 08:38 36.7 C 87 18 120/72 93 12/03/24 07:59 12/03/24 04:00 36.7 C 82 18 118/69 94 O2 Del Method O2 Flow Rate 12/03/24 10:15 12/03/24 08:38 Nasal Cannula 2 12/03/24 07:59 Nasal Cannula 2 12/03/24 04:00 Nasal Cannula 2
--- NOTE | 2024-12-03 13:16 | Hospitalist Progress Note ---
Date of Service December 03, 2024 Assessment & Plan (1) Lumbar stenosis with neurogenic claudication: (2) Neuropathic pain of left ankle: (3) S/P spinal surgery: (4) LBBB (left bundle branch block): Plan: New (5) Hypertension: (6) Prediabetes: (7) CKD (chronic kidney disease) stage 3, GFR 30-59 ml/min: (8) Depression: Plan Patient seems to be progressing as expected after his lumbar surgery Reviewed attending note, suspects ankle pain may be some nerve irritation post surgery anticipate improving with time Reviewed cardiology note, no further interventions or testing required here in the hospital. They have signed off, anticipate patient could be transferred to the MedSur unit Other medical issues stableContinue current medical regimen [facility] therapies [facility] Admission and Anticipated Discharge Date Admission Date: December 02, 2024 Subjective Patient states he did not sleep well at all last night. Has some ankle pain that has started since his surgery. Physical Exam Physical Exam: Constitutional: Alert, nontoxic HEENT: Mucous membranes moist. Lungs: Clear to auscultation, decreased, no wheezes rales or rhonchi CV: S1-S2, regular Abdomen: Soft, nontender, nondistended Extremities: No significant edema, left ankle is not swollen, not red, no real tenderness palpation. Cannot reproduce his pain Neuro: No focal deficits Psych: Cooperative, normal mood Results & Data Results & Data Vital Signs (Past 12 Hours) Vital Signs Temp Pulse Pulse Pulse Resp BP Pulse Ox 12/03/24 10:15 84 12/03/24 08:38 36.7 C 87 18 120/72 93 12/03/24 07:59 12/03/24 04:00 36.7 C 82 18 118/69 94 O2 Del Method O2 Flow Rate 12/03/24 10:15 12/03/24 08:38 Nasal Cannula 2 12/03/24 07:59 Nasal Cannula 2 12/03/24 04:00 Nasal Cannula 2 Diagnostic Findings Reviewed imaging, laboratory and diagnostic studies. Pertinent findings as below. Creatinine 1.47, around baseline Rest of BMP and CBC stable (5) Hypertension Hypertension type: primary hypertension Qualified Code(s): I10 - Essential (primary) hypertension
--- NOTE | 2024-12-03 15:27 | Electrocardiogram Report ---
Test Reason : Blood Pressure : */* mmHG Vent. Rate : 83 BPM Atrial Rate : 83 BPM P-R Int : 182 ms QRS Dur : 136 ms QT Int : 446 ms P-R-T Axes : 63 3 126 degrees QTcB Int : 524 ms Normal sinus rhythm Left bundle branch block Abnormal ECG When compared with ECG of 06-Nov-2024 13:52, Premature ventricular complexes are no longer Present Premature supraventricular complexes are no longer Present Left bundle branch block is now Present Confirmed by Min Cohen ([id number]) on 12/03/2024 3:27:17 PM Referred By: Yong Dyer Confirmed By: Min Cohen
--- NOTE | 2024-12-03 16:27 | Electrocardiogram Report ---
Test Reason : Blood Pressure : */* mmHG Vent. Rate : 82 BPM Atrial Rate : 82 BPM P-R Int : 196 ms QRS Dur : 144 ms QT Int : 452 ms P-R-T Axes : 61 32 204 degrees QTcB Int : 528 ms Normal sinus rhythm Left bundle branch block Abnormal ECG When compared with ECG of 02-Dec-2024 11:45, (unconfirmed) T wave inversion more evident in Inferior leads Confirmed by Min Cohen ([id number]) on 12/03/2024 4:26:49 PM Referred By: Yong Dyer Confirmed By: Min Cohen
[2024-12-03] MEDS: MELATONIN 3 MG TAB PO PRN (20:47)
[2024-12-04 03:14] VITALS: TEMP 98.1
--- NOTE | 2024-12-04 08:22 | Discharge Summary ---
Date of Service December 04, 2024 Admission HPI Per Admitting Provider This is a 74-year-old male who presents with chronic system back and leg pain a failed course of nonoperative care is here for surgical invention. Admission Exam (Per Admitting) Constitutional WD/WN, vitals as above Eyes normal visual godinez by confrontation ENMT external ear and nose normal, oropharynx normal Neck trachea midline, no thyromegaly Respiratory normal respiratory effort Cardiovascular Extremities: normal capillary refill Gastrointestinal (Abdomen) Inspection/Auscultation: abdomen normal to inspection Musculoskeletal Spine: + pain with thoraco-lumbar ROM Extremities: extremities normal to inspection Skin no rashes, warm and dry Neurologic normal touch/pain/proprioception and moves all extremities Psychiatric A+Ox3, euthymic affect Eye Contact: good eye contact Discharge Data Consultations 12/02/24 11:49 Consult Cardiology Routine 12/02/24 13:49 Consult Hospitalist Routine Procedures Performed Operation Date: 12/02/24 09:05 Actual Procedures p L1-L2 Decompression, T12-L2 Fusion, Connect to Previous Hardware, Interbody Fusion, Spinal Cord Monitoring(Not Applicable) - Yong Dyer DO Hospital Course (1) Two-level lumbosacral spondylosis with radiculopathy: Patient is being discharged home on postoperative day 2 status post T12-L2 decompression and fusion. Intraoperatively patient had some EK changes and was found to have a new left bundle branch block. Cardiology has been following postop. He has been on a telemetry floor. This has been uneventful. Cardiac workup has been negative. Can follow-up as an outpatient. Pain is controlled currently. Has some right foot pain. This is unchanged. He is up and ambulatory around the hallways with a walker. CALI drain output last shift was 40 cc. All lab levels are stable Discharge Instructions ACTIVITY RECOMMENDATIONS: SELF CARE INSTRUCTIONS AFTER THORACIC/LUMBAR FUSIONS 1. You may walk to your tolerance. It is good exercise for your legs and back. Expect some back and intermittent leg aches and pains. 2. You may perform "counter-top" level activities (make a sandwich, mack with a project, etc.). 3. No bending or lifting of more than 10 pounds or back twisting of any nature (roll like a log when turning in bed). 4. You may ride in a car for 20-30 minutes at a time. No driving until after your first visit with your doctor. 5. Frequent changes of position and restricting sitting to 30 minutes at a time will help limit the amount of back spasms and stiffness you may experience. 6. You may discontinue the use of ambulatory aids (cane, crutches, etc.) once your strength and confidence allow. 7. You may division superintendent the shower and let water strike your incision when you arrive home at least once daily. Do not take a tub bath, sit in a hot tub or go into a swimming pool until after your first recheck in the office. 8. You may resume previous diet. SPECIAL CARE INSTRUCTIONS: VERY IMPORTANT TO READ AND REVIEW A. Your surgical incision has been closed with a cosmetic suture under the skin that will dissolve in about 6 weeks. In 14 days, you can use a pair of clean scissors and cut the suture that is left outside of the skin at the ends of your incision. 1. The small skin tapes can be removed 7 days after surgery if they have not fallen off by that point. 2. You may keep the wound open to air as much as possible to promote healing after post-op day number 5 unless told otherwise by your doctor. 3. If you think the wound looks like it is becoming infected (redness or worsening drainage) and/or you are experiencing fever, chill or worsening back pain and muscle spasms, contact the office so that we may evaluate you as soon as possible. B. Complications are uncommon, but please contact us if you have any signs or symptoms of: 1. wound infection (fever higher than 102.5 degrees F, redness, separation of wound, drainage, or increasing pain from the incision) 2. blood clots in legs (pain, swelling, redness and warmth in legs) 3. urinary tract infection (fever higher than 102.5 degrees F, burning upon urination or increased frequency of urination) 4. nerve problems (inability to walk on your toes or heels, numbness, loss of bowel or bladder control) 5. any other symptoms that concern you C. Please call the office at if you have any concerns or questions about your operation or recovery. D. No smoking! Smoking drastically decreases the chance of a solid fusion. E. Do not take any anti-inflammatory medications (Indocin, Advil, Motrin, Aspirin, Naprosyn, etc.) as these may inhibit the chance of a solid fusion. Tylenol is okay to take for pain. MANAGING PAIN AFTER SPINAL SURGERY 1. Narcotic medication is intended for short-term use and will be provided for surgical pain. Surgical pain usually lasts for a period of 4-6 weeks. Narcotic medication includes Percocet, Vicodin, Darvocet, Tylenol #3 or Lortab. 2. Longer-term pain is more appropriately treated with non-narcotic medication such as Tylenol ES. 3. Muscle spasm is not appropriately treated with narcotics. Muscle relaxers such as Soma, Flexeril or Skelaxin can be used along with Tylenol ES. 4. Remember that we all live with some "aches and pains". This is not unusual or uncommon after an injury or as we get older. a. Back pain is expected and may include muscle spasms for 4 to 6 weeks after surgery. The pain should gradually improve. If the pain worsens for no apparent reason, please contact the office. b. Intermittent leg pain may also be experienced and should not be concerned about unless it worsens for no apparent reason. If so, please contact the office. 5. We will provide appropriate medication within the normal guidelines of their prescribed use. We will also be very cautious and aware of potential abuse and extended duration of patients' medication needs. a. Pain medications are for your comfort and to assist with sleep and rest so that the tissue can heal. They are not provided in order to return to normal activity and should not be used through the day. To do so or worsening pain at night can result from ongoing tissue damage and development of tolerance to the prescribed medicine. 6. Please allow 2-3 days to process refills. Prescriptions will not be mailed but must be picked up at the office. FOLLOW UP VISIT: Keep your scheduled follow-up appointment. Any questions, please call the office at .
[2024-12-04] MEDS: GABAPENTIN 100 MG CAP PO SCH (08:49)
--- NOTE | 2024-12-04 10:21 | Hospitalist Progress Note ---
Date of Service December 04, 2024 Assessment & Plan (1) Two-level lumbosacral spondylosis with radiculopathy: (2) S/P spinal surgery: Plan: Jesus Durham is a 74y/o M with PMHx significant for HTN, HLD, CKD stage III, prediabetes, BPH, polycythemia, mood disorder and other medical problems listed below whom our service is consulted on for routine postoperative medical management after undergoing elective L1-L2 decompression, T12-L2 fusion and connected previous hardware performed by Dr. Dyer on 12/02/24. POD #2 s/p L1-L2 decompression, T12-L2 fusion and connected previous hardware with Dr. Dyer. Per ortho for pain control, wound care, anticoagulation and activities. Leukocytosis 2/2 steroid use. Continue incentive spirometry, PT/OT when appropriate as per ortho team. Plan for discharge home as per primary service. (3) Acute blood loss anemia: Plan: Preoperative Hgb 15.1, Hgb downtrended to 11.7 on 12/03/24. EBL = 300mL. Due to expected postsurgical loss plus dilutional component as well. Continue to monitor H/H and transfuse PRN for Hgb<8. (4) LBBB (left bundle branch block): Plan: Changes noted on telemetry by anesthesia during surgery with wide complex tachycardia. Postoperative EKG with LBBB. Asymptomatic when evaluated postoperatively and repeat EKG with similar findings. Cardiology saw and evaluated patient. Prior cardiac studies demonstrating incomplete left bundle branch block as well as transient left bundle branch block noted on outpatient Zio patch monitoring. BMP, negative troponin trend, Mag and TSH reassuring. Resting echocardiogram demonstrated preserved LV systolic function. No further inpatient cardiac testing or intervention recommended at this time. (5) Hypertension: Plan: Remains normotensive. Continue home amlodipine, losartan. HCTZ on hold. (6) Prediabetes: Plan: Hgb A1c 6.2% in June 2024. BSG remains stable. No indication for SSI at this time. (7) CKD (chronic kidney disease) stage 3, GFR 30-59 ml/min: Plan: Cr remains stable. Baseline Cr around mid to upper 1s per previous provider documentation. Avoid nephrotoxic medications when able. Monitor renal function closely with daily labs and renally dose medications when able. (8) Depression: Plan: Chronic, stable. Continue citalopram. (9) Dyslipidemia: Plan: Chronic, stable. Continue rosuvastatin. DVT Prophylaxis: SCDs/TEDs as per primary service. Code Status: FULL CODE PCP: Karin Wilder MD Disposition: Can be downgraded to Med/Surg from medicine standpoint. Discharge planning as per primary service. We will follow the patient with you during their hospital stay. You can reach a member of the [facility] Team 23/04 via [employer]. Patient seen in collaboration with Dr. Franco. Please see addendum. I spent a total of 35 minutes coordinating, documenting, and providing care for this patient excluding time spent in the performance of separately billed services or time spent by another provider/QHP. This included personally reviewing all current laboratories and imaging studies, medical reconciliation, outpatient chart review and discussion with specialists. This chart was completed in part utilizing Speech Voice Recognition Software. Grammatical errors, random word insertions, pronoun errors, and incomplete sentences are an occasional consequence of this system due to software limitations, ambient noise, and hardware issues. Any formal questions or concerns about the content, text, or information contained within the body of this dictation should be directly addressed to the provider for clarification. Admission and Anticipated Discharge Date Admission Date: December 02, 2024 Supervising Physician Co-Signing Physician Notes Patient is seen and examined on day of discharge. Back pain at surgical site is controlled. Also admits to have some numbness of right lower extremity associated with pain postsurgery. Patient denies any chest pain, dyspnea, nausea, vomiting, abdominal pain. On exam patient is moderately built and nourished, no apparent distress, normocephalic atraumatic, EOMI, decreased hearing, normal breath sounds, clear to auscultation, trace edema, abdomen soft, nontender, normal bowel sounds, back--surgical site in dressing, drain, alert, awake, oriented, grossly no focal deficits. Lumbosacral spondylosis with radiculopathy S/P decompression, fusion surgery by Dr. Dyer. Postoperative acute blood loss anemia. Left bundle branch block. Appreciate orthopedic spine, cardiology input. Patient was advised to follow-up with PCP, Dr. Dyer on discharge. I personally interviewed and examined the patient at bedside. I welch ve reviewed the advanced practitioner's documentation on the date of service referred in note and agree with plan. Patient's care is coordinated with Harmony Doty PA-C. Please refer to the documentation above for details of patient's presentation and for discussion of other issues. I spent a total of31 minutes coordinating, documenting, and providing care for this patient excluding time spent in the performance of separately billed services or time spent by another provider/QHP. Subjective Notes he is feeling good this morning. Back pain well-controlled. Eating breakfast without issue. Denies any SOB or chest pain. Slept well last night. Anticipate he will go home this morning per his discussion with the primary service this morning. Ambulating around the halls independently with a walker. Review of Systems Review of Systems: At least ten systems reviewed and negative, except as noted in the subjective section. Physical Exam Physical Exam: General: WD/WN, NAD, sitting up in bed eating breakfast, pleasant, conversing appropriately. A+Ox3. HEENT: Normocephalic, atraumatic. Conjunctivae normal. External ear and nose normal, oropharynx normal. Respiratory: Normal respiratory effort, lungs clear to auscultation bilaterally. No accessory muscle use. Cardiovascular: Regular rate, rhythm, normal peripheral pulses, no BLE edema. Abdomen/GI: Normal bowel sounds, soft, nondistended, nontender to palpation in all quadrants. Extremities/Musculoskeletal: No cyanosis or clubbing, moves all extremities. Surgical dressing C/D/I. Neurologic: No overt focal deficits, CN's II-XI not formally tested but appear grossly intact bilaterally. Results & Data Results & Data Vital Signs (Past 12 Hours) Vital Signs Temp Pulse Pulse Resp BP Pulse Ox O2 Del Method 12/04/24 07:42 36.7 C 75 14 132/82 93 Room Air 12/04/24 07:17 69 12/04/24 02:58 36.7 C 76 18 122/67 91 Room Air 12/03/24 22:33 36.8 C 76 18 115/65 91 Room Air (5) Hypertension Hypertension type: primary hypertension Qualified Code(s): I10 - Essential (primary) hypertension (7) CKD (chronic kidney disease) stage 3, GFR 30-59 ml/min Chronic kidney disease stage 3 subtype: unspecified whether 3a or 3b Qualified Code(s): N18.30 - Chronic kidney disease, stage 3 unspecified (8) Depression Depression Type: unspecified Qualified Code(s): F32.A - Depression, unspecified
[2024-12-04 10:59] VITALS: PULSE 84; RESP 16; O2SAT 92
[2024-12-04 12:41] VITALS: BP 110/70
== END 2024-12-04 15:22 | disposition home or self-care (01) | DRG 427 ==
LOC: ASU 07:02 → 3E 11:25 → 2N 18:00